=== PATIENT | female | born 1985 | race Caucasian/White ===

== ENCOUNTER 2016-08-20 16:40 | Emergency (ER) | payer OTHER ==
[~2016-08-20] VITALS: Ht 165.1 cm; Wt 133.8 kg
--- NOTE | 2016-08-20 17:11 | PHYS DOC ---
Past Medical History Past Medical History: Arthritis, CHF, Liver Disease Past Surgical History: Additional Past Surgical Histo: cervical, Alcohol Use: None Drug Use: None Adult General Chief Complaint Chief Complaint: ABDOMINAL PAIN HPI HPI Patient is a 30 year old female who presents with abdominal pain. Patient reports for the past year she has been experiencing pain in her right upper quadrant and around her umbilicus. Patient describes a sharp pain that is worse with movement. She also reports associated nausea, but no nausea at this time. She says she has undergone workup for this already, and has been referred to a supervisor trust accounts and a airbrush painter at . She has appointments with the specialist in the next 2 weeks. She says she has tried taking meclizine at home for the nausea with insufficient relief, and she has not taken anything for pain as she does not have anything. No other acute complaints. Review of Systems Review of Systems Constitutional: Denies fever or chills Eyes: Denies change in visual acuity or eye pain HENT: Denies nasal congestion or sore throat Respiratory: Denies cough or shortness of breath Cardiovascular: Denies chest pain GI: RUQ/periumbilical abdominal pain, nausea. Denies vomiting, bloody stools or diarrhea : Denies dysuria or hematuria Musculoskeletal: Denies back pain or joint pain Integument: Denies rash or skin lesions Neurologic: Denies headache, focal weakness or sensory changes Current Medications Current Medications Current Medications Medications (Trade) Dose Ordered Sig/Kathy Start Time Stop Time Status Last Admin Dose Admin Info (Do NOT chart on this entry -- for MONITORING) 1 each PRN DAILY PRN 08/20/16 17:45 08/22/16 17:44 Iohexol (Omnipaque 300 Mg/ml) 75 ml 1X ONCE 08/20/16 17:45 08/20/16 17:46 DC Morphine Sulfate 4 mg 4 mg 1X ONCE 08/20/16 17:15 08/20/16 17:16 DC 08/20/16 17:46 4 MG Ondansetron HCl (Zofran) 4 mg 1X ONCE 08/20/16 17:15 08/20/16 17:16 DC 08/20/16 17:46 4 MG Sodium Chloride (Iv Sodium Chloride 0.9% 500ml Bag) 500 ml @ 500 mls/hr 1X ONCE 08/20/16 17:15 08/20/16 18:14 DC 08/20/16 17:00 500 MLS/HR Allergies Allergies Allergies Coded Allergies Type Severity Reaction Last Updated Verified NSAIDS (Non-Steroidal Anti-Inflamma Allergy Intermediate 08/20/16 Yes Sulfa (Sulfonamide Antibiotics) Allergy Intermediate 08/20/16 Yes cephalexin Allergy Intermediate 08/20/16 Yes prednisone Allergy Intermediate 08/20/16 Yes sulfamethoxazole Allergy Intermediate 08/20/16 Yes trimethoprim Allergy Intermediate 08/20/16 Yes Physical Exam Physical Exam Constitutional: Well developed, well nourished, no acute distress, non-toxic appearance HENT: Normocephalic, atraumatic, bilateral external ears normal Eyes: EOMI, conjunctiva normal, no discharge Neck: Normal range of motion, no stridor Cardiovascular: Heart rate normal, regular rhythm, no murmur Lungs & Thorax: Bilateral breath sounds clear to auscultation Abdomen: Bowel sounds normal, soft, non-distended, RUQ/periumbilical TTP without guarding or rebound Skin: Warm, dry, no erythema, no rash Extremities: No obvious deformity, no edema Neurologic: Alert and oriented X 3, no gross deficits noted Current Patient Data Vital Signs Vital Signs Date Time Temp Pulse Resp B/P Pulse Ox O2 Delivery O2 Flow Rate FiO2 08/20/16 17:51 92 18 159/74 95 Room Air 08/20/16 16:52 97.7 97.7 Lab Values Laboratory Tests Test 08/20/16 17:05 08/20/16 17:33 Urine Collection Type Unknown Urine Color Yellow Urine Clarity Clear Urine pH 5.5 Urine Specific [place] 1.020 Urine Protein Negativemg/dL (NEG-TRACE) Urine Glucose (UA) Negativemg/dL (NEG) Urine Ketones (Stick) Negativemg/dL (NEG) Urine Blood Negative (NEG) Urine Nitrite Negative (NEG) Urine Bilirubin Negative (NEG) Urine Urobilinogen Dipstick 0.2mg/dL (0.2 mg/dL) Urine Leukocyte Esterase Negative (NEG) Urine RBC 0/HPF (0-2) Urine WBC 1-4/HPF (0-4) Urine Squamous Epithelial Cells Many/LPF Urine Bacteria Many/HPF (0-FEW) Urine Mucus Marked/LPF Urine Trichomonas Present Urine Test Negative (NEG) White Blood Count 17.2x10^3/uL (4.0-11.0) H Red Blood Count 4.78x10^6/uL (3.50-5.40) Hemoglobin 15.0g/dL (12.0-15.5) Hematocrit 43.9% (36.0-47.0) Mean Corpuscular Volume 92fL (79-100) Mean Corpuscular Hemoglobin 31pg (25-35) Mean Corpuscular Hemoglobin Concent 34g/dL (31-37) Red Cell Distribution Width 13.4% (11.5-14.5) Platelet Count 282x10^3/uL (140-400) Neutrophils (%) (Auto) 74% (31-73) H Lymphocytes (%) (Auto) 18% (24-48) L Monocytes (%) (Auto) 6% (0-9) Eosinophils (%) (Auto) 1% (0-3) Basophils (%) (Auto) 1% (0-3) Neutrophils # (Auto) 12.7x10^3uL (1.8-7.7) H Lymphocytes # (Auto) 3.1x10^3/uL (1.0-4.8) Monocytes # (Auto) 1.1x10^3/uL (0.0-1.1) Eosinophils # (Auto) 0.1x10^3/uL (0.0-0.7) Basophils # (Auto) 0.2x10^3/uL (0.0-0.2) Segmented Neutrophils % 74% (35-66) H Band Neutrophils % 3% (0-9) Lymphocytes % 17% (24-48) L Monocytes % 3% (0-10) Eosinophils % 3% (0-5) Platelet Estimate Adequate (ADEQUATE) Sodium Level 144mmol/L (136-145) Potassium Level 4.1mmol/L (3.5-5.1) Chloride Level 108mmol/L (98-107) H Carbon Dioxide Level 26mmol/L (21-32) Anion Gap 10 (6-14) Blood Urea Nitrogen 15mg/dL (7-20) Creatinine 0.7mg/dL (0.6-1.0) Estimated GFR (Cockcroft-Gault) 99.6 BUN/Creatinine Ratio 21 (6-20) H Glucose Level 105mg/dL (70-99) H Calcium Level 8.8mg/dL (8.5-10.1) Total Bilirubin 0.2mg/dL (0.2-1.0) Aspartate Amino Transferase (AST) 41U/L (15-37) H Alanine Aminotransferase (ALT) 60U/L (14-59) H Alkaline Phosphatase 84U/L (46-116) Total Protein 7.1g/dL (6.4-8.2) Albumin 3.3g/dL (3.4-5.0) L Albumin/Globulin Ratio 0.9 (1.0-1.7) L Lipase 177U/L (73-393) Laboratory Tests 08/20/16 17:33 Laboratory Tests 08/20/16 17:33 EKG EKG [] Radiology/Procedures Radiology/Procedures [] Course & Med Decision Making Course & Med Decision Making Pertinent Labs and Imaging studies reviewed. (See chart for details) Patient is 22-year-old female who presents with abdominal pain. Given tenderness on exam, will obtain CT abdomen/pelvis to evaluate. Have also ordered labs, UA, urine screen. IV fluids, nausea meds, pain meds ordered for relief of symptoms. Labs notable for leukocytosis, mildly elevated AST and ALT. Prior to CT scan (just after she received meds) and before I could review lab results with patient, the patient states that she has to leave immediately. Discussed danger of leaving without completed workup. Patient acknowledges risk and remains insistent upon leaving. Discharged AMA with return precautions. Dragon Disclaimer Dragon Disclaimer This electronic medical record was generated, in whole or in part, using a voice recognition dictation system. Departure Departure Referrals: UNKNOWN PCP NAME (PCP) CHELA OCONNELL MD Aug 20, 2016 17:11
[2016-08-20] MEDS ORDERED: MORPHINE SULFATE 4 MG/ML DISP.SYRIN. IV ONE (17:15)
[2016-08-20] MEDS ORDERED: IV NORMAL SALINE 500ML BAG 500 ML IV ONE (17:15)
[2016-08-20] MEDS ORDERED: ONDANSETRON PF 4 MG/2 ML VIAL. IV ONE (17:15)
[2016-08-20 17:24] LABS: NEG OBC UR NEG; POS OBC UR POS
[2016-08-20 17:25] LABS: BILIRUBIN,URINE NEGATIVE (NEG); GLUCOSE,URINE NEGATIVE (NEG); NITRITE,URINE NEGATIVE (NEG); PH,URINE 5.5; PROTEIN,URINE NEGATIVE (NEG-TRACE); UROBILINOGEN,URINE 0.2 mg/dL (0.2 mg/dL)
[2016-08-20 17:37] LABS: BACTERIA,URINE MANY /HPF (0-FEW); RBC,URINE 0 /HPF (0-2); SQUAMOUS EPITHELIAL CELL,UR MANY /LPF; TRICHOMONAS,URINE PRESENT
[2016-08-20] MEDS ORDERED: IOHEXOL 300 MG/ML 75 ML VIAL IV ONE (17:45)
[2016-08-20] MEDS ORDERED: CONTRAST GIVEN MC PRN (17:45)
[2016-08-20 17:48] LABS: BASO # 0.2 x10^3/uL (0.0-0.2); BASO % 1 % (0-3); EOS % 1 % (0-3); HEMATOCRIT 43.9 % (36.0-47.0); LYMPH # 3.1 x10^3/uL (1.0-4.8); LYMPH % 18 % (24-48); MEAN CORPUSCULAR HEMOGLOBIN 31 pg (25-35); MEAN CORPUSCULAR HGB CONC 34 g/dL (31-37); MEAN CORPUSCULAR VOLUME 92 fL (79-100); MONO % 6 % (0-9); NEUT % 74 % (31-73); PLATELET COUNT 282 x10^3/uL (140-400); RED BLOOD COUNT 4.78 x10^6/uL (3.50-5.40); RED CELL DISTRIBUTION WIDTH 13.4 % (11.5-14.5); WHITE BLOOD COUNT 17.2 x10^3/uL (4.0-11.0)
[2016-08-20 17:51] VITALS: BP 159/74
[2016-08-20 18:17] LABS: CALCIUM 8.8 mg/dL (8.5-10.1); CREATININE 0.7 mg/dL (0.6-1.0); GFR 99.6; POTASSIUM 4.1 mmol/L (3.5-5.1)
[2016-08-20 18:21] LABS: ALBUMIN 3.3 g/dL (3.4-5.0); ALBUMIN/GLOBULIN RATIO 0.9 (1.0-1.7); TOTAL BILIRUBIN 0.2 mg/dL (0.2-1.0); TOTAL PROTEIN 7.1 g/dL (6.4-8.2)
[2016-08-20 18:23] LABS: % EOS 3 % (0-5)
[2016-08-20 18:24] LABS: PLT ESTIMATE ADEQUATE (ADEQUATE)
--- NOTE | 2016-08-22 14:04 | VNOTE ---
CALL BACK NOTE CALL BACK Microbiology 08/20/16 Urine Culture - Final, Complete 08/20/16 Urine Culture Result 1 (JORGE) - Final, Complete 08/20/16 Antimicrobic Susceptibility - Final, Complete Attempted to contact she the number provided a [phone] with the person on the other line stating that she is not available at this time. Patient's urine was positive for Escherichia coli. Patient was also positive for Trichomonas in the urine. Patient had left AGAINST MEDICAL ADVICE. JAMES GARCIA NP Aug 22, 2016 14:04
--- NOTE | 2016-08-22 15:27 | VNOTE ---
CALL BACK NOTE CALL BACK Microbiology 08/20/16 Urine Culture - Final, Complete 08/20/16 Urine Culture Result 1 (JORGE) - Final, Complete 08/20/16 Antimicrobic Susceptibility - Final, Complete Patient has called back in regards to the phone message. Patient was provided Flagyl for Trichomonas with instructions to have her partner treated as well as avoiding sexual intercourse for the next 2 weeks. Patient was also provided with Macrobid for her urinary tract infection. Prescriptions were called into the [facility] at and [facility]. JAMES GARCIA NP Aug 22, 2016 15:27
== END 2016-08-20 18:19 | disposition left against medical advice (07) ==
LOC: ER 16:40
DX: R10.11 Right upper quadrant pain (principal); R11.2 Nausea with vomiting, unspecified; I50.9 Heart failure, unspecified; M19.90 Unspecified osteoarthritis, unspecified site; Z88.2 Allergy status to sulfonamides; Z88.8 Allergy status to other drugs, medicaments and biological substances; Z88.1 Allergy status to other antibiotic agents
CPT/HCPCS: 36415; 80053; 81001; 81025; 83690; 85007; 85027; 87086; 87186; 96361; 96374; 96375; 99284; J2270; J2405; J7040

== ENCOUNTER 2016-09-05 14:55 | Emergency (ER) | payer OTHER ==
[2016-09-05 16:30] VITALS: BP 177/100
[2016-09-05] MEDS ORDERED: HYDR-971 PO (16:49)
[2016-09-05] MEDS ORDERED: CLIN-44 PO (16:49)
--- NOTE | 2016-09-05 16:49 | PHYS DOC ---
Past Medical History Past Medical History: Arthritis, CHF, Liver Disease Past Surgical History: Additional Past Surgical Histo: cervical, Alcohol Use: None Drug Use: None Adult General Chief Complaint Chief Complaint: ABSCESS HPI HPI Patient is a 31 year old female who presents with an abscess on the right inner thigh that she noted 2 weeks ago. Patient states she tried draining it with no success. She states she has history of similar abscesses. Patient denies any fever. Review of Systems Review of Systems Constitutional: Denies fever or chills [] Musculoskeletal: Denies back pain or joint pain [] Integument: Abscess to the right inner thigh Neurologic: Denies headache, focal weakness or sensory changes [] Endocrine: Denies polyuria or polydipsia [] Allergies Allergies Allergies Coded Allergies Type Severity Reaction Last Updated Verified NSAIDS (Non-Steroidal Anti-Inflamma Allergy Intermediate 08/20/16 Yes Sulfa (Sulfonamide Antibiotics) Allergy Intermediate 08/20/16 Yes cephalexin Allergy Intermediate 08/20/16 Yes prednisone Allergy Intermediate 08/20/16 Yes sulfamethoxazole Allergy Intermediate 08/20/16 Yes trimethoprim Allergy Intermediate 08/20/16 Yes Physical Exam Physical Exam Constitutional: Well developed, well nourished, no acute distress, non-toxic appearance. [] Skin: Right inner thigh with an area of induration approximately 1 x 1 cm with surrounding approximately 2 cm cellulitis. The area is warm and tender to palpate but not fluctuant. Back: No tenderness, no CVA tenderness. [] Extremities: No tenderness, no cyanosis, no clubbing, ROM intact, no edema. [] Neurologic: Alert and oriented X 3, normal motor function, normal sensory function, no focal deficits noted. [] Psychologic: Affect normal, judgement normal, mood normal. [] EKG EKG [] Radiology/Procedures Radiology/Procedures [] Course & Med Decision Making Course & Med Decision Making Pertinent Labs and Imaging studies reviewed. (See chart for details) Patient has an abscess with cellulitis of the right inner thigh that is not ready to be drained. Her tetanus is up-to-date. Discharged with clindamycin for 10 days. Warm compresses recommended to the area. Follow-up with her own PCP or the provided general surgeon in 1-2 weeks. Instructed to return to the ED if symptoms worsen. Dragon Disclaimer Dragon Disclaimer This electronic medical record was generated, in whole or in part, using a voice recognition dictation system. Departure Departure Impression: Primary Impression: Cellulitis and abscess of lower extremity Disposition: HOME, SELF-CARE Condition: STABLE Referrals: MARCIN REAVES (PCP) Follow-up with your own doctor in one week Patient Instructions: Abscess Additional Instructions: You were seen for an abscess of the right the abscess is not ready to be drained. Apply warm compresses to the area twice a day. Keep it clean and dry. Take the prescribed antibiotics until they're finished. Come back to the emergency room if symptoms worsen especially if you develop a fever on the area of redness grows bigger. Scripts Hydrocodone/Apap 5-325 ([place] 5-325 Tablet)1 Each Tablet1-2 Tab PO Q4-6HRS #14 TAB Prov:RAMY HOANG APRN 09/05/16 Clindamycin Hcl 150 Mg Capsule3 Cap PO TID #90 CAP Prov:RAMY HOANG APRN 09/05/16 RAMY HOANG APRN Sep 05, 2016 16:49
== END 2016-09-05 17:11 | disposition home or self-care (01) ==
LOC: ER 14:55
DX: L03.115 Cellulitis of right lower limb (principal); M19.90 Unspecified osteoarthritis, unspecified site; I50.9 Heart failure, unspecified; Z88.6 Allergy status to analgesic agent; Z88.1 Allergy status to other antibiotic agents; Z88.2 Allergy status to sulfonamides; Z88.8 Allergy status to other drugs, medicaments and biological substances
CPT/HCPCS: 99283

== ENCOUNTER 2016-09-07 21:26 | Emergency (ER) | payer OTHER ==
[~2016-09-07 21:26] MED LIST: CLIN-44 PO; HYDR-971 PO
[2016-09-07 21:34] VITALS: BP 144/77
[2016-09-07] MEDS ORDERED: HYDR-971 PO (22:14)
--- NOTE | 2016-09-07 22:16 | PHYS DOC ---
Past Medical History Past Medical History: Arthritis, CHF, Liver Disease Past Surgical History: Additional Past Surgical Histo: cervical, Alcohol Use: None Drug Use: None Adult General Chief Complaint Chief Complaint: ABSCESS HPI HPI Patient is a 31 year old female who presents with reexamination of an abscess on her thigh that she was seen for on 09/05/15. States she has been taking antibiotic as instructed but she is out of pain medicaiton. Denies fevers, chills Review of Systems Review of Systems Constitutional: Denies fever or chills Eyes: Denies change in visual acuity, redness, or eye pain HENT: Denies nasal congestion or sore throat Respiratory: Denies cough or shortness of breath Cardiovascular: No additional information not addressed in HPI] GI: Denies abdominal pain, nausea, vomiting, bloody stools or diarrhea : Denies dysuria or hematuria Musculoskeletal: Denies back pain or joint pain Integument: abscess right lower leg Neurologic: Denies headache, focal weakness or sensory changes [] Endocrine: Denies polyuria or polydipsia [] Allergies Allergies Allergies Coded Allergies Type Severity Reaction Last Updated Verified NSAIDS (Non-Steroidal Anti-Inflamma Allergy Intermediate 08/20/16 Yes Sulfa (Sulfonamide Antibiotics) Allergy Intermediate 08/20/16 Yes cephalexin Allergy Intermediate 08/20/16 Yes prednisone Allergy Intermediate 08/20/16 Yes sulfamethoxazole Allergy Intermediate 08/20/16 Yes trimethoprim Allergy Intermediate 08/20/16 Yes Physical Exam Physical Exam Constitutional: Well developed, well nourished, no acute distress, non-toxic appearance. HENT: Normocephalic, atraumatic, bilateral external ears normal, oropharynx moist, no oral exudates, nose normal. Eyes: PERRLA, EOMI, conjunctiva normal, no discharge. Neck: Normal range of motion, no tenderness, supple, no stridor. Cardiovascular:Heart rate regular rhythm, no murmur Lungs & Thorax: Bilateral breath sounds clear to auscultation Abdomen: Bowel sounds normal, soft, no tenderness, no masses, no pulsatile masses. Skin: 2cm diameter area of swelling and erythema to right medial thigh with mild cellultitis. No induration . Back: No tenderness, no CVA tenderness. Extremities: No tenderness, no cyanosis, no clubbing, ROM intact, no edema. Neurologic: Alert and oriented X 3, normal motor function, normal sensory function, no focal deficits noted. Psychologic: Affect normal, judgement normal, mood normal. [] Current Patient Data Vital Signs Vital Signs Date Time Temp Pulse Resp B/P Pulse Ox O2 Delivery O2 Flow Rate FiO2 09/07/16 21:34 98.6 99 22 99 Room Air 98.6 EKG EKG [] Radiology/Procedures Radiology/Procedures [] Impressions: 1. abscess right lower leg Course & Med Decision Making Course & Med Decision Making Pertinent Labs and Imaging studies reviewed. (See chart for details) [] Dragon Disclaimer Dragon Disclaimer This electronic medical record was generated, in whole or in part, using a voice recognition dictation system. Departure Departure Impression: Primary Impression: Cellulitis and abscess of lower extremity Disposition: 01 HOME, SELF-CARE Condition: STABLE Referrals: MARCIN REAVES [employer] (PCP) FLORIN MILLER MD Patient Instructions: Abscess, [id number] Additional Instructions: Continue the antibiotic as discussed. Keep area clean and dry. Apply warm compress three times daily. Follow up as discussed. Scripts Hydrocodone/Apap 5-325 ([place] 5-325 Tablet)1 Each Tablet1 Tab PO PRN Q6HRS PRN PAIN #10 TAB Prov:MARY LEVINE APRN 09/07/16 MARY LEVINE APRN Sep 07, 2016 22:16
== END 2016-09-07 22:34 | disposition home or self-care (01) ==
LOC: ER 21:26
DX: L03.115 Cellulitis of right lower limb (principal); M19.90 Unspecified osteoarthritis, unspecified site; I50.9 Heart failure, unspecified; Z88.6 Allergy status to analgesic agent; Z88.1 Allergy status to other antibiotic agents; Z88.2 Allergy status to sulfonamides; Z88.8 Allergy status to other drugs, medicaments and biological substances
CPT/HCPCS: 99283

== ENCOUNTER 2016-11-01 18:34 | Emergency (ER) | payer OTHER ==
[~2016-11-01] VITALS: Ht 165.1 cm; Wt 158.8 kg
[2016-11-01 18:41] VITALS: BP 162/89
--- NOTE | 2016-11-01 19:06 | PHYS DOC ---
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 States she had sexual intercourse last night. She denies prior vaginal bleeding or discharge. Denies abdominal pain, dysuria, fever or chills, back pain, vaginal pain. 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 Review of Systems Review of Systems Constitutional: Denies fever or chills [] Eyes: Denies change in visual acuity, redness, or eye pain [] HENT: Denies nasal congestion or sore throat [] Respiratory: Denies cough or shortness of breath [] Cardiovascular: No additional information not addressed in HPI [] GI: Denies abdominal pain, nausea, vomiting, bloody stools or diarrhea [] : Denies dysuria or hematuria [] Musculoskeletal: Denies back pain or joint pain [] Integument: Denies rash or skin lesions [] Neurologic: Denies headache, focal weakness or sensory changes [] Endocrine: Denies polyuria or polydipsia [] Allergies Allergies Allergies Coded Allergies Type Severity Reaction Last Updated Verified NSAIDS (Non-Steroidal Anti-Inflamma Allergy Intermediate 08/20/16 Yes Sulfa (Sulfonamide Antibiotics) Allergy Intermediate 08/20/16 Yes cephalexin Allergy Intermediate 08/20/16 Yes prednisone Allergy Intermediate 08/20/16 Yes sulfamethoxazole Allergy Intermediate 08/20/16 Yes trimethoprim Allergy Intermediate 08/20/16 Yes Physical Exam Physical Exam Constitutional: Well developed, well nourished, no acute distress, non-toxic appearance. [] HENT: Normocephalic, atraumatic, bilateral external ears normal, oropharynx moist, nose normal. [] Eyes: PERRLA, EOMI. [] Neck: Normal range of motion, supple. [] Cardiovascular:Heart rate regular rhythm [] Lungs & Thorax: Bilateral breath sounds clear to auscultation [] Abdomen: Bowel sounds normal, soft, no tenderness. [] Skin: Warm, dry, no erythema, no rash. [] Back: Normal range of motion. [] Extremities: ROM intact, no edema. [] Neurologic: Alert and oriented X 3, normal motor function, normal sensory function, no focal deficits noted. [] Psychologic: Affect normal, judgement normal, mood normal. [] Current Patient Data Vital Signs Vital Signs Date Time Temp Pulse Resp B/P Pulse Ox O2 Delivery O2 Flow Rate FiO2 11/01/16 18:41 97.9 103 18 162/89 98 Room Air 97.9 Lab Values Laboratory Tests Test 11/01/16 18:02 POC Urine HCG, Qualitative Hcg positive (Negative) Course & Med Decision Making Course & Med Decision Making Pertinent Labs and Imaging studies reviewed. (See chart for details) Bedside ultrasound as performed by me showing single intrauterine with heart rate of 169. Return precautions given. She understands and agrees with plan. Dragon Disclaimer Dragon Disclaimer This electronic medical record was generated, in whole or in part, using a voice recognition dictation system. Departure Departure Impression: Primary Impression: Vaginal bleeding during , antepartum Disposition: 01 HOME, SELF-CARE Condition: STABLE Referrals: ANNELISE GOYAL MD Patient Instructions: Vaginal Bleeding During , [id number] Additional Instructions: Follow-up with OB clinic. Return for any concerns. Steffen LARSON MD Nov 01, 2016 19:06
== END 2016-11-01 19:13 | disposition home or self-care (01) ==
LOC: ER 18:34
DX: O46.91 Antepartum hemorrhage, unspecified, first trimester (principal); M19.90 Unspecified osteoarthritis, unspecified site; I50.9 Heart failure, unspecified; Z3A.09 9 weeks gestation of pregnancy; Z88.1 Allergy status to other antibiotic agents; Z88.2 Allergy status to sulfonamides; Z88.6 Allergy status to analgesic agent; Z88.8 Allergy status to other drugs, medicaments and biological substances
CPT/HCPCS: 81025; 99284-25

== ENCOUNTER 2016-11-08 09:24 | Emergency (ER) | payer OTHER ==
[~2016-11-08] VITALS: Ht 165.1 cm; Wt 156.5 kg
--- NOTE | 2016-11-08 10:12 | PHYS DOC ---
Past Medical History Past Medical History: Arthritis, CHF, Hypertension, Liver Disease, UTI, Other Additional Past Medical Histor: preeclampsia; 9 miscarriages; septal defect in uterus Past Surgical History: Additional Past Surgical Histo: cervical, Alcohol Use: None Drug Use: None Adult General Chief Complaint Chief Complaint: VAGINAL BLEEDING HPI HPI Patient is a 31 year old female who presents with complaint of vaginal bleeding and left flank pain. The patient states that she has been having flank pain over the past 2 days. Patient noticed this morning that she had vaginal bleeding after urinating. Patient describes the bleeding as spotting. Patient states that she had a similar episode of spotting on November 01 and was seen in the emergency department at that time. A bedside ultrasound showed a normal intrauterine . Patient is G 10 approximately 11 weeks . 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 Patient rates her pain as 7 out of 10. Patient states that the pain is sharp and towards her left flank. Patient denies any pelvic pain or abdominal pain currently. He states she is concerned that she may have urinary tract infection. Patient contacted her OB Dr. Gibbs's office, and she was told to come to the emergency department for evaluation. Review of Systems Review of Systems Constitutional: Denies fever or chills [] Eyes: Denies change in visual acuity, redness, or eye pain [] HENT: Denies nasal congestion or sore throat [] Respiratory: Denies cough or shortness of breath [] Cardiovascular: Denies chest pain or edema [] GI: Denies abdominal pain, nausea, vomiting, bloody stools or diarrhea [] : Vaginal bleeding [] Musculoskeletal: Left flank pain, denies back pain or joint pain [] Integument: Denies rash or skin lesions [] Neurologic: Denies headache, focal weakness or sensory changes [] Current Medications Current Medications Current Medications Medications (Trade) Dose Ordered Sig/Kathy Start Time Stop Time Status Last Admin Dose Admin Acetaminophen (Tylenol) 650 mg 1X ONCE 11/08/16 10:30 11/08/16 10:31 DC 11/08/16 10:34 650 MG Sodium Chloride (Iv Sodium Chloride 0.9% 500ml Bag) 500 ml @ 500 mls/hr 1X ONCE 11/08/16 10:30 11/08/16 11:29 DC 11/08/16 10:13 500 MLS/HR Allergies Allergies Allergies Coded Allergies Type Severity Reaction Last Updated Verified NSAIDS (Non-Steroidal Anti-Inflamma Allergy Intermediate 08/20/16 Yes Sulfa (Sulfonamide Antibiotics) Allergy Intermediate 08/20/16 Yes cephalexin Allergy Intermediate 08/20/16 Yes prednisone Allergy Intermediate 08/20/16 Yes sulfamethoxazole Allergy Intermediate 08/20/16 Yes trimethoprim Allergy Intermediate 08/20/16 Yes nitrofurantoin Allergy Unknown 11/08/16 Yes Physical Exam Physical Exam Constitutional: Well developed, well nourished, no acute distress, non-toxic appearance. [] HENT: Normocephalic, atraumatic, bilateral external ears normal, oropharynx moist, no oral exudates, nose normal. [] Eyes: PERRLA, EOMI, conjunctiva normal, no discharge. [] Neck: Normal range of motion, no tenderness, supple, no stridor. [] Cardiovascular:Heart rate regular rhythm, no murmur [] Lungs & Thorax: Bilateral breath sounds clear to auscultation [] Abdomen: Bowel sounds normal, soft, no tenderness, no masses, no pulsatile masses. . Pelvic: Normal external exam, subacute blood present in vaginal canal, no active bleeding, cervical os closed, no cervical motion tenderness, no midline or bilateral adnexal tenderness on bimanual exam [] Skin: Warm, dry, no erythema, no rash. [] Back: No tenderness, no CVA tenderness. [] Extremities: No tenderness, no cyanosis, no clubbing, ROM intact, no edema. [] Neurologic: Alert and oriented X 3, normal motor function, normal sensory function, no focal deficits noted. [] Current Patient Data Vital Signs Vital Signs Date Time Temp Pulse Resp B/P Pulse Ox O2 Delivery O2 Flow Rate FiO2 11/08/16 11:26 89 16 135/77 99 Room Air 11/08/16 09:25 98.7 98.7 Lab Values Laboratory Tests Test 11/08/16 08:36 11/08/16 09:25 11/08/16 10:05 POC Urine HCG, Qualitative Hcg positive (Negative) Urine Collection Type Unknown Urine Color Yellow Urine Clarity Clear Urine pH 6.0 Urine Specific [place] >=1.030 Urine Protein Negativemg/dL (NEG-TRACE) Urine Glucose (UA) Negativemg/dL (NEG) Urine Ketones (Stick) Negativemg/dL (NEG) Urine Blood Large (NEG) Urine Nitrite Negative (NEG) Urine Bilirubin Negative (NEG) Urine Urobilinogen Dipstick 0.2mg/dL (0.2 mg/dL) Urine Leukocyte Esterase Negative (NEG) Urine RBC 11-20/HPF (0-2) Urine WBC 1-4/HPF (0-4) Urine Squamous Epithelial Cells Many/LPF Urine Bacteria Many/HPF (0-FEW) Urine Mucus Marked/LPF White Blood Count 11.3x10^3/uL (4.0-11.0) H Red Blood Count 4.46x10^6/uL (3.50-5.40) Hemoglobin 14.0g/dL (12.0-15.5) Hematocrit 40.8% (36.0-47.0) Mean Corpuscular Volume 92fL (79-100) Mean Corpuscular Hemoglobin 32pg (25-35) Mean Corpuscular Hemoglobin Concent 34g/dL (31-37) Red Cell Distribution Width 13.1% (11.5-14.5) Platelet Count 242x10^3/uL (140-400) Neutrophils (%) (Auto) 67% (31-73) Lymphocytes (%) (Auto) 26% (24-48) Monocytes (%) (Auto) 5% (0-9) Eosinophils (%) (Auto) 2% (0-3) Basophils (%) (Auto) 1% (0-3) Neutrophils # (Auto) 7.5x10^3uL (1.8-7.7) Lymphocytes # (Auto) 2.9x10^3/uL (1.0-4.8) Monocytes # (Auto) 0.6x10^3/uL (0.0-1.1) Eosinophils # (Auto) 0.2x10^3/uL (0.0-0.7) Basophils # (Auto) 0.1x10^3/uL (0.0-0.2) Maternal Serum HCG Beta Subunit 97157bZE/mL (0-6) H Sodium Level 141mmol/L (136-145) Potassium Level 3.6mmol/L (3.5-5.1) Chloride Level 106mmol/L (98-107) Carbon Dioxide Level 25mmol/L (21-32) Anion Gap 10 (6-14) Blood Urea Nitrogen 6mg/dL (7-20) L Creatinine 0.6mg/dL (0.6-1.0) Estimated GFR (Cockcroft-Gault) 118.2 BUN/Creatinine Ratio 10 (6-20) Glucose Level 95mg/dL (70-99) Calcium Level 8.7mg/dL (8.5-10.1) Magnesium Level 1.6mg/dL (1.8-2.4) L Total Bilirubin 0.3mg/dL (0.2-1.0) Aspartate Amino Transferase (AST) 12U/L (15-37) L Alanine Aminotransferase (ALT) 21U/L (14-59) Alkaline Phosphatase 72U/L (46-116) Total Protein 6.6g/dL (6.4-8.2) Albumin 2.7g/dL (3.4-5.0) L Albumin/Globulin Ratio 0.7 (1.0-1.7) L Laboratory Tests 11/08/16 10:05 Laboratory Tests 11/08/16 10:05 Microbiology 11/08/16 Wet Prep - Final, Complete EKG EKG Not performed [] Radiology/Procedures Radiology/Procedures Limited bedside transabdominal ultrasound performed and interpreted by myself: Intrauterine present in right horn of bicornuate uterus, heart rate 178 bpm, no adnexal masses or free fluid present Course & Med Decision Making Course & Med Decision Making Pertinent Labs and Imaging studies reviewed. (See chart for details) Patient was given IV fluids and Tylenol in the emergency department. Patient found to have significant bacteriuria and will be started on oral clindamycin for treatment as patient has listed several allergies to multiple antibiotics. I spoke with Dr. Gibbs who asked that the patient come to his office tomorrow for reevaluation. Advised return to emergency department for any worsening symptoms. Patient voiced understanding and in agreement with treatment plan. Dragon Disclaimer Dragon Disclaimer This electronic medical record was generated, in whole or in part, using a voice recognition dictation system. Departure Departure Impression: Primary Impression: Threatened miscarriage Additional Impression: Urinary tract infection Disposition: HOME, SELF-CARE Condition: IMPROVED Referrals: MARCIN REAVES-[facility] (PCP) Patient Instructions: Threatened Miscarriage, Urinary Tract Infection Additional Instructions: Follow-up with Dr. Gibbs in one week. Return to the emergency department for any worsening symptoms. Scripts Clindamycin Hcl 300 Mg Capsule1 Cap PO BID #14 CAP Prov:JEREMIE RAMOS MD 11/08/16 Problem Qualifiers Additional Impression: Urinary tract infection Urinary tract infection type: site unspecified Hematuria presence: with hematuria Qualified Code: N39.0 - Urinary tract infection, site not specified JEREMIE RAMOS MD Nov 08, 2016 10:12
[2016-11-08 10:16] LABS: BASO # 0.1 x10^3/uL (0.0-0.2); BASO % 1 % (0-3); EOS % 2 % (0-3); HEMATOCRIT 40.8 % (36.0-47.0); LYMPH # 2.9 x10^3/uL (1.0-4.8); LYMPH % 26 % (24-48); MEAN CORPUSCULAR HEMOGLOBIN 32 pg (25-35); MEAN CORPUSCULAR HGB CONC 34 g/dL (31-37); MEAN CORPUSCULAR VOLUME 92 fL (79-100); MONO % 5 % (0-9); NEUT % 67 % (31-73); PLATELET COUNT 242 x10^3/uL (140-400); RED BLOOD COUNT 4.46 x10^6/uL (3.50-5.40); RED CELL DISTRIBUTION WIDTH 13.1 % (11.5-14.5); WHITE BLOOD COUNT 11.3 x10^3/uL (4.0-11.0)
[2016-11-08 10:17] LABS: BILIRUBIN,URINE NEGATIVE (NEG); GLUCOSE,URINE NEGATIVE (NEG); NITRITE,URINE NEGATIVE (NEG); PROTEIN,URINE NEGATIVE (NEG-TRACE); UROBILINOGEN,URINE 0.2 mg/dL (0.2 mg/dL)
[2016-11-08 10:26] LABS: BACTERIA,URINE MANY /HPF (0-FEW); SQUAMOUS EPITHELIAL CELL,UR MANY /LPF
[2016-11-08 10:27] LABS: CALCIUM 8.7 mg/dL (8.5-10.1); CREATININE 0.6 mg/dL (0.6-1.0); GFR 118.2; POTASSIUM 3.6 mmol/L (3.5-5.1)
[2016-11-08] MEDS ORDERED: IV NORMAL SALINE 500ML BAG 500 ML IV ONE (10:30)
[2016-11-08] MEDS ORDERED: ACETAMINOPHEN 325 MG TABLET. PO ONE (10:30)
[2016-11-08 10:33] LABS: ALBUMIN 2.7 g/dL (3.4-5.0); ALBUMIN/GLOBULIN RATIO 0.7 (1.0-1.7); MAGNESIUM 1.6 mg/dL (1.8-2.4); TOTAL BILIRUBIN 0.3 mg/dL (0.2-1.0); TOTAL PROTEIN 6.6 g/dL (6.4-8.2)
[2016-11-08 11:26] VITALS: BP 135/77
[2016-11-08] MEDS ORDERED: NITR100C62 PO (11:39)
[2016-11-08] MEDS ORDERED: CLIN300C86 PO (11:54)
[2016-11-09] MEDS ORDERED: HYDR-971 PO (00:36)
== END 2016-11-08 12:05 | disposition home or self-care (01) ==
LOC: ER 09:24
DX: O20.0 Threatened abortion (principal); Z3A.11 11 weeks gestation of pregnancy; O23.41 Unspecified infection of urinary tract in pregnancy, first trimester; O16.1 Unspecified maternal hypertension, first trimester; Z88.2 Allergy status to sulfonamides; Z88.1 Allergy status to other antibiotic agents; Z88.8 Allergy status to other drugs, medicaments and biological substances; Z88.6 Allergy status to analgesic agent
CPT/HCPCS: 36415; 80053; 81001; 81025; 83735; 84702; 85027; 86850; 86900; 86901; 87086; 87491; 87591; 96360; 99285; J7040; Q0111

== ENCOUNTER 2016-11-08 22:57 | Emergency (ER) | payer OTHER ==
[~2016-11-08] VITALS: Ht 165.1 cm; Wt 156.5 kg
[~2016-11-08 22:57] MED LIST changes: +CLIN300C86 PO; +NITR100C62 PO
[2016-11-08 22:59] VITALS: BP 176/106
[2016-11-08] MEDS ORDERED: HYDROCODONE/APAP 5/325MG TABLET. PO ONE (23:45)
--- NOTE | 2016-11-09 00:03 | ACF ---
Admission Forms Criteria OBSTETRIC AND GYNECOLOGIC DISEASE [facility] Clinical Indications for Admission to Inpatient Care (Place 'X' for any and all applicable criteria): Hospital admission is needed for appropriate care of the patient because of 1 or more of the following (1)(2)(3): [ ]I. Hemodynamic instability, as indicated by 1 or more of the following (1)( 2)(3)(4)(5): [ ]a) Vital signs or other findings not as expected for chronic patient condition or baseline [ ]b) Instability indicated by 1 or more of the following: [ ]i) Hypotension [ ]ii) Symptomatic tachycardia unresponsive to treatment (eg, analgesia, fluids, sedation as indicated) [ ]iii) Inadequate perfusion indicated by 1 or more of the following: [ ]A. Lactic acidosis (greater than 2 mmol/ L) [ ]B. New abnormal capillary refill ( greater than 3 seconds) [ ]C. Reduced urine output [ ]D. New altered mental status [ ]iv) Orthostatic vital sign changes unresponsive to treatment (eg, fluids) [ ]v) Multiple IV fluid boluses required to maintain adequate blood pressure or perfusion [ ]vi) IV inotropic or vasopressor medication required to maintain adequate blood pressure or perfusion [ ]II. Obstetric infection requiring hospitalization indicated by 1 or more of the following(13)(14): [ ]a) Chorioamnionitis [ ]b) Endometritis (except mild endometritis) [ ]c) Pelvic abscess [ ]d) Peritonitis [ ]e) Septic pelvic thrombophlebitis [ ]III. Amniotic fluid or pulmonary embolism(4)(5)(6) [ ]IV. Suspected peritonitis or ectopic requiring monitoring beyond scope of 24 hours or observation care(7)(8) [ ]V. compromise requiring hospitalization indicated by ALL of the following(9)(10): [ ]a) compromise indicated by 1 or more of the following(11): [ ]i) Abnormal heart rate monitoring [ ]ii) Abnormal contraction stress test [ ]iii) Abnormal biophysical profile [ ]iv) Abnormal Doppler flow in vessels (ie, Doppler velocimetry) (12) [ ]b) Persistence of compromise indicators during evaluation and observation monitoring [ ]. Ovarian hyperstimulation syndrome requiring hospitalization[A] indicated by ALL of the following(15): [ ]a) Recent ovarian stimulation with gonadotropins, or evidence on ultrasound of spontaneous emergence of large number of ovarian follicles [ ]b) Evidence of severe ovarian hyperstimulation syndrome indicated by 1 or more of the following: [ ]i) Abdominal pain unresponsive to oral therapy [ ]ii) Acute respiratory distress syndrome [ ]iii) Electrolyte imbalance ( eg, hyponatremia, hyperkalemia) [ ]iv) Elevated liver enzymes [ ]v) Evidence of thromboembolism [ ]vi) Hemoconcentration (hematocrit greater than 45 % (0.45)) [ ]vii) Inability to maintain oral intake adequate to prevent hemoconcentration [ ]viii) Marked hypotension from baseline (eg, SBP 20 mmHg below patients usual pressure) [ ]ix) Oliguria or anuria [ ]x) Ovarian torsion [ ]xi) Pleural or pericardial effusion on x-ray or echocardiogram [ ]xii) Rapid increase in serum creatinine to greater than 1.2 mg/dL (106 micromoles/L) or creatinine clearance less than 50 mL/min/1.73m2 (0.84 mL/ sec/1.73m2) [ ]xiii) Ruptured ovarian cyst with hemorrhage [ ]xiv) Severe abdominal pain or peritoneal signs [ ]xv) Tense ascites that cannot be managed with paracentesis in outpatient setting [ ]VII.Pelvic infection requiring hospitalization indicated by 1 or more of the following (16): [ ]a) Outpatient treatment has failed or is not appropriate (eg, inpatient monitoring required) [ ]b) Pelvic abscess [ ]c) Surgical emergency cannot be excluded (eg, rigid abdomen) [ ]d) Vomiting precluding outpatient and observation care management VIII. loss complications requiring inpatient medical treatment indicated by 1 or more of the following (4)(7)(9): [ ]a) Fever [ ]b) Peritonitis [ ]c) Sepsis [ ]d) Severe abdominal pain [ ]IX. or patient requiring monitoring for severe heart failure, pulmonary disease, or other comorbid condition (eg, peripartum cardiomyopathy) (4)(17) [ ]X. patient with rupture of membranes requiring hospitalization indicated by ANY ONE of the following: [ ]a) Chorioamnionitis, cloudy amniotic fluid, or other evidence of infection [ ]b) compromise or other need for monitoring (11) [ ]c) Gestation longer than 23 weeks and ANY ONE of the following: [ ]i) Abnormal (noncephalic) presentation [ ]ii) Inadequate home environment (eg, home too far from hospital, unable to rapidly return to hospital) [ ]d) Temperature greater than 100.4 degrees F (38 degrees C)( oral) [ ]e) Threatened labor requiring monitoring beyond scope (eg, over 24 hours) of observation Care [ ] XI. complications, including severe lacerations, infections, or retained placenta (19) [ ] XII.Uterine bleeding with high-risk features indicated by ANY ONE of the following (4): [ ]a) Active major hemorrhage (eg, hemorrhage) [ ]b) Coagulopathy with active bleeding [ ]c) Gestational trophoblastic disease (eg, molar ) (20 ) [ ]d) (longer than 23 weeks) and ANY ONE of the following: [ ]i) Pain [ ]ii) Placental abruption, known or suspected [ ]iii) Placenta accrete, known or suspected(21) [ ]iv) Placenta previa, known or suspected [ ]v) Vasa previa [ ]e) Severe anemia [ ]XIII. Obstetric or Gynecologic Disease, condition or symptom for which ANY ONE of the following: [ ]a) Emergency and observation care have failed or are not considered appropriate ( Also use General Criteria: Observation Care Criteria as appropriate) [ ]b) Presence of a General Admission Criteria or Pediatric General Admission Criteria The original MD [facility] content created by [facility] has been revised. The portions of the content which have been revised are identified through the use of italic text or in bold, and [facility] has neither reviewed nor approved the modified material.All other unmodified content is copyright [facility]. Please see references footnoted in the original [facility] [employer] edition 2016 ADALBERTO CUTLER Nov 09, 2016 00:03
[2016-11-09] MEDS ORDERED: HYDR-971 PO (00:36)
--- NOTE | 2016-11-09 00:37 | PHYS DOC ---
Past Medical History Past Medical History: Arthritis, CHF, Hypertension, Liver Disease, UTI, Other Additional Past Medical Histor: preeclampsia; 9 miscarriages; septal defect in uterus Past Surgical History: Additional Past Surgical Histo: cervical, Alcohol Use: None Drug Use: None Adult General Chief Complaint Chief Complaint: VAGINAL BLEEDING HPI HPI 31-year-old female who was seen in the emergency department this morning and diagnosed with a miscarriage and sent home for outpatient follow-up. Patient states she has an appointment with her [facility] doctor at 2:30 PM tomorrow. She states that several hours after her visit to the emergency Department bleeding became a little heavier and pain intensified. She states the pain now is 9 or 10 out of 10. She states she was not given any pain medicine to take at home today. She denies any fever chills or sweats. She's not had any lightheadedness or orthostatic changes. [] Review of Systems Review of Systems Constitutional: Denies fever or chills [] Eyes: Denies change in visual acuity, redness, or eye pain [] HENT: Denies nasal congestion or sore throat [] Respiratory: Denies cough or shortness of breath [] Cardiovascular: No additional information not addressed in HPI [] GI: Denies abdominal pain, nausea, vomiting, bloody stools or diarrhea [] : Per history of present illness [] Musculoskeletal: Denies back pain or joint pain [] Integument: Denies rash or skin lesions [] Neurologic: Denies headache, focal weakness or sensory changes [] Endocrine: Denies polyuria or polydipsia [] Allergies Allergies Allergies Coded Allergies Type Severity Reaction Last Updated Verified NSAIDS (Non-Steroidal Anti-Inflamma Allergy Intermediate 08/20/16 Yes Sulfa (Sulfonamide Antibiotics) Allergy Intermediate 08/20/16 Yes cephalexin Allergy Intermediate 08/20/16 Yes prednisone Allergy Intermediate 08/20/16 Yes sulfamethoxazole Allergy Intermediate 08/20/16 Yes trimethoprim Allergy Intermediate 08/20/16 Yes nitrofurantoin Allergy Unknown 11/08/16 Yes Physical Exam Physical Exam Constitutional: Well developed, well nourished, no acute distress, non-toxic appearance. [] HENT: Normocephalic, atraumatic, bilateral external ears normal, oropharynx moist, no oral exudates, nose normal. [] Eyes: PERRLA, EOMI, conjunctiva normal, no discharge. [] Neck: Normal range of motion, no tenderness, supple, no stridor. [] Cardiovascular:Heart rate regular rhythm, no murmur [] Lungs & Thorax: Bilateral breath sounds clear to auscultation [] Abdomen: Bowel sounds normal, soft, no tenderness, no masses, no pulsatile masses. [] Skin: Warm, dry, no erythema, no rash. [] Back: No tenderness, no CVA tenderness. [] Extremities: No tenderness, no cyanosis, no clubbing, ROM intact, no edema. [] Neurologic: Alert and oriented X 3, normal motor function, normal sensory function, no focal deficits noted. [] Psychologic: Anxious. [] : Vaginal exam was performed by Jani sanford neuronal reported to me that the cervix was 1 cm dilated with mild bleeding there was no brisk bleeding. There is no cervical motion tenderness or adnexal fullness Current Patient Data Vital Signs Vital Signs Date Time Temp Pulse Resp B/P Pulse Ox O2 Delivery O2 Flow Rate FiO2 11/08/16 22:59 98.6 91 20 176/106 98 Room Air 98.6 EKG EKG [] Radiology/Procedures Radiology/Procedures [] Course & Med Decision Making Course & Med Decision Making Pertinent Labs and Imaging studies reviewed. (See chart for details) [ED course: Evaluation reveals a 31-year-old female with an ongoing miscarriage. She remained stable throughout her time in the department. I reassured her that I thought follow-up tomorrow afternoon was appropriate. I will prescribe her with pain medicine to take as needed until her appointment tomorrow.] Dragon Disclaimer Dragon Disclaimer This electronic medical record was generated, in whole or in part, using a voice recognition dictation system. Departure Departure Impression: Primary Impression: Threatened miscarriage Disposition: 01 HOME, SELF-CARE Condition: STABLE Referrals: MARCIN REAVES-C (PCP) Patient Instructions: Miscarriage Additional Instructions: Follow with your [facility] specialist at 2:30 tomorrow afternoon as scheduled. Return to the emergency part with any new or concerning symptoms Scripts Hydrocodone/Apap 5-325 (Victor 5-325 Tablet)1 Each Tablet1 Tab PO PRN Q6HRS PRN PAIN #10 TAB Prov:GASTON BUSTOS DO 11/09/16 GASTON BUSTOS DO Nov 09, 2016 00:37
== END 2016-11-09 00:42 | disposition home or self-care (01) ==
LOC: ER 22:57
DX: O20.0 Threatened abortion (principal); Z3A.09 9 weeks gestation of pregnancy; I11.0 Hypertensive heart disease with heart failure; I50.9 Heart failure, unspecified; M19.90 Unspecified osteoarthritis, unspecified site; Z87.440 Personal history of urinary (tract) infections; Z98.890 Other specified postprocedural states; Z88.2 Allergy status to sulfonamides; Z88.1 Allergy status to other antibiotic agents; Z88.8 Allergy status to other drugs, medicaments and biological substances
CPT/HCPCS: 99283

== ENCOUNTER 2016-11-11 19:44 | Emergency (ER) | payer OTHER ==
[~2016-11-11] VITALS: Ht 165.1 cm; Wt 156.5 kg
[2016-11-11] MEDS ORDERED: HYDROCODONE/APAP 5/325MG TABLET. PO ONE (20:30)
[2016-11-11] MEDS ORDERED: MORP15TA PO (20:35)
--- NOTE | 2016-11-11 20:35 | PHYS DOC ---
Past Medical History Past Medical History: Arthritis, CHF, Hypertension, Liver Disease, UTI, Other Additional Past Medical Histor: preeclampsia; 9 miscarriages; septal defect in uterus Past Surgical History: Additional Past Surgical Histo: cervical, Alcohol Use: None Drug Use: None Adult General Chief Complaint Chief Complaint: VAGINAL BLEEDING HPI HPI 31-year-old female whom is 13 wks preg by LMP presenting to the emergency department with vaginal bleeding and abdominal pain and suprapubic region. She is currently being treated with clindamycin for urinary tract infection. Her abdominal pain is mild to moderate. She reports probably going through miscarriage though she denies the visualization of tissue. Nonradiating. No alleviating factors present. Review of systems is negative for fevers chills chest pain shortness of breath nausea vomiting diarrhea. All other review of systems is negative unless otherwise noted in history of present illness. Review of Systems Review of Systems SEE ABOVE. Current Medications Current Medications Current Medications Medications (Trade) Dose Ordered Sig/Kathy Start Time Stop Time Status Last Admin Dose Admin Acetaminophen/ Hydrocodone Bitart (Lortab 5/325) 2 tab 1X ONCE 11/11/16 20:30 11/11/16 20:32 DC 11/11/16 20:51 2 TAB Allergies Allergies Allergies Coded Allergies Type Severity Reaction Last Updated Verified NSAIDS (Non-Steroidal Anti-Inflamma Allergy Intermediate 08/20/16 Yes Sulfa (Sulfonamide Antibiotics) Allergy Intermediate 08/20/16 Yes cephalexin Allergy Intermediate 08/20/16 Yes prednisone Allergy Intermediate 08/20/16 Yes sulfamethoxazole Allergy Intermediate 08/20/16 Yes trimethoprim Allergy Intermediate 08/20/16 Yes nitrofurantoin Allergy Unknown 11/08/16 Yes Physical Exam Physical Exam Constitutional: Well developed, well nourished, no acute distress, non-toxic appearance. [] HENT: Normocephalic, atraumatic, bilateral external ears normal, oropharynx moist, no oral exudates, nose normal. [] Eyes: PERRLA, EOMI, conjunctiva normal, no discharge. [] Neck: Normal range of motion, no tenderness, supple, no stridor. [] Cardiovascular:Heart rate regular rhythm, no murmur [] Lungs & Thorax: Bilateral breath sounds clear to auscultation [] Abdomen: Bowel sounds normal, soft, no tenderness, no masses, no pulsatile masses. [] Skin: Warm, dry, no erythema, no rash. [] Back: No tenderness, no CVA tenderness. [] Extremities: No tenderness, no cyanosis, no clubbing, ROM intact, no edema. [] Neurologic: Alert and oriented X 3, normal motor function, normal sensory function, no focal deficits noted. [] Psychologic: Affect normal, judgement normal, mood normal. [] Current Patient Data Vital Signs Vital Signs Date Time Temp Pulse Resp B/P Pulse Ox O2 Delivery O2 Flow Rate FiO2 11/11/16 20:51 99 Room Air 11/11/16 20:17 98.5 97 20 161/91 98.5 Lab Values Laboratory Tests Test 11/11/16 20:35 White Blood Count 12.5x10^3/uL (4.0-11.0) H Red Blood Count 4.19x10^6/uL (3.50-5.40) Hemoglobin 13.1g/dL (12.0-15.5) Hematocrit 39.0% (36.0-47.0) Mean Corpuscular Volume 93fL (79-100) Mean Corpuscular Hemoglobin 31pg (25-35) Mean Corpuscular Hemoglobin Concent 34g/dL (31-37) Red Cell Distribution Width 12.8% (11.5-14.5) Platelet Count 224x10^3/uL (140-400) Neutrophils (%) (Auto) 61% (31-73) Lymphocytes (%) (Auto) 32% (24-48) Monocytes (%) (Auto) 6% (0-9) Eosinophils (%) (Auto) 1% (0-3) Basophils (%) (Auto) 1% (0-3) Neutrophils # (Auto) 7.6x10^3uL (1.8-7.7) Lymphocytes # (Auto) 4.0x10^3/uL (1.0-4.8) Monocytes # (Auto) 0.7x10^3/uL (0.0-1.1) Eosinophils # (Auto) 0.1x10^3/uL (0.0-0.7) Basophils # (Auto) 0.1x10^3/uL (0.0-0.2) Maternal Serum HCG Beta Subunit 82405hJE/mL (0-6) H Sodium Level 138mmol/L (136-145) Potassium Level 3.5mmol/L (3.5-5.1) Chloride Level 106mmol/L (98-107) Carbon Dioxide Level 25mmol/L (21-32) Anion Gap 7 (6-14) Blood Urea Nitrogen 10mg/dL (7-20) Creatinine 0.5mg/dL (0.6-1.0) L Estimated GFR (Cockcroft-Gault) 145.9 Glucose Level 108mg/dL (70-99) H Calcium Level 9.0mg/dL (8.5-10.1) Laboratory Tests 11/11/16 20:35 Laboratory Tests 11/11/16 20:35 EKG EKG [] Radiology/Procedures Radiology/Procedures [] Course & Med Decision Making Course & Med Decision Making Pertinent Labs and Imaging studies reviewed. (See chart for details) [] 31-year-old female presenting to the emergency department with abdominal pain and vaginal bleeding in . Afebrile in the emergency department with a normal heart rate. Blood pressure elevated likely from chronic hypertension. Physical exam shows a nontender abdomen. Ultrasound obtained which showed viable intrauterine preg. Patient is Rh+. Currently being treated for urinary tract infection. UA 3 days ago showed no protein in the urine. Patient was subsequent discharged home to follow up with obstetrics over the next 2 or 3 days. [id number] discharge instructions given along with return precautions. Patient comfortable with plan. I recommended the patient have her hypertension treated by her primary care physician or satellite project site monitor. Dragon Disclaimer Dragon Disclaimer This electronic medical record was generated, in whole or in part, using a voice recognition dictation system. Departure Departure Impression: Primary Impression: Vaginal bleeding during , antepartum Disposition: 01 HOME, SELF-CARE Condition: STABLE Referrals: MARCIN REAVES-Ole (PCP) Patient Instructions: Vaginal Bleeding During , [id number] Additional Instructions: Thank you for allowing us to participate in your care today. Followup with your primary care physician in 3 days if your symptoms do not improve. If you do not have a primary care provider you can ask for a list of our primary care providers. Return to the emergency department you have any new or concerning findings. This should be evaluated by the primary care physician and any necessary consulting services for continued management within a few days after discharge. Return to emergency room if you have any new or concerning symptoms including but not limited to fever, chills, nausea, vomiting, intractable pain, any new rashes, chest pain, shortness of air, uncontrolled bleeding, difficulty breathing, and/or vision loss. You may have been prescribed medication that can change in your level of thinking and ability to operate machinery. These medications include hydrocodone and Ativan. Also, Benadryl has been known to do this as well. Be sure to check with your pharmacist and ask if the medications you've prescribed can affect your level of consciousness. I recommend not operating heavy machinery or driving while on medication such as these. Scripts Morphine Sulfate 15 Mg Tablet1 Tab PO PRN Q6-8HRS PRN SEVERE PAIN #8 TAB Prov:ALEXANDREA FULLER MD 11/11/16 ALEXANDREA FULLER MD Nov 11, 2016 20:35
[2016-11-11 20:48] LABS: BASO # 0.1 x10^3/uL (0.0-0.2); BASO % 1 % (0-3); EOS % 1 % (0-3); HEMOGLOBIN 13.1 g/dL (12.0-15.5); LYMPH % 32 % (24-48); MEAN CORPUSCULAR HEMOGLOBIN 31 pg (25-35); MEAN CORPUSCULAR HGB CONC 34 g/dL (31-37); MEAN CORPUSCULAR VOLUME 93 fL (79-100); MONO % 6 % (0-9); NEUT % 61 % (31-73); PLATELET COUNT 224 x10^3/uL (140-400); RED BLOOD COUNT 4.19 x10^6/uL (3.50-5.40); RED CELL DISTRIBUTION WIDTH 12.8 % (11.5-14.5); WHITE BLOOD COUNT 12.5 x10^3/uL (4.0-11.0)
[2016-11-11 21:05] LABS: CREATININE 0.5 mg/dL (0.6-1.0); GFR 145.9; POTASSIUM 3.5 mmol/L (3.5-5.1)
--- NOTE | 2016-11-11 21:39 | RAD ---
PROCEDURE Ob ultrasound less than 14 weeks 11/11/2016 HISTORY First trimester with vaginal bleeding for 3 hours. TECHNIQUE Using the distended urinary bladder as a sonographic window, a real-time ultrasound examination of the pelvis was performed. Multiple images were obtained. FINDINGS A gestational sac is seen within the endometrial canal within the fundus/body of the uterus. Within this gestational sac a pole is seen. The CRL of this pole measures 2.62 centimeters. This corresponds to an estimated gestational age by ultrasound of 9 weeks 3 days +or minus a standard deviation of 7 days. cardiac activity is seen with heart rate of 165 beats per minute. An area of subchorionic hemorrhage is seen inferior to the gestational sac within the uterus. This measures 1.9 centimeters in size. The uterus is otherwise within normal limits. Both ovaries are within normal limits in size. The right ovary measures 4.7 x 2.8 x 2.6 centimeters in size. A 2.8 centimeter corpus luteum is seen involving right ovary. The left ovary measures 4.8 x 3.3 x 1.8 centimeters in size. No free fluid is seen. IMPRESSION Single living IUP with an estimated gestational age by ultrasound of 9 weeks 3 days +or minus a standard deviation of 7 days. The estimated date of delivery by ultrasound is 06/13/2017. Electronically signed by: Papa Petersen MD (Nov 11, 2016 21:38:33)
[2016-11-11 22:07] VITALS: BP 155/85
== END 2016-11-11 22:33 | disposition home or self-care (01) ==
LOC: ER 19:44
DX: O20.9 Hemorrhage in early pregnancy, unspecified (principal); O26.891 Other specified pregnancy related conditions, first trimester; R10.30 Lower abdominal pain, unspecified; I50.9 Heart failure, unspecified; O99.89 Other specified diseases and conditions complicating pregnancy, childbirth and the puerperium; M19.90 Unspecified osteoarthritis, unspecified site; O16.1 Unspecified maternal hypertension, first trimester; Z3A.09 9 weeks gestation of pregnancy; Z88.6 Allergy status to analgesic agent; Z88.1 Allergy status to other antibiotic agents; Z88.2 Allergy status to sulfonamides; Z88.8 Allergy status to other drugs, medicaments and biological substances
CPT/HCPCS: 36415; 76801; 80048; 84702; 85027; 99285-25

== ENCOUNTER 2016-12-10 15:43 | Emergency (ER) | payer OTHER ==
[~2016-12-10] VITALS: Ht 165.1 cm; Wt 160.1 kg
[~2016-12-10 15:43] MED LIST changes: +MORP15TA PO
[2016-12-10 15:51] VITALS: BP 143/74
--- NOTE | 2016-12-10 17:05 | ED.ADGEN ---
Past Medical History Past Medical History: Arthritis, CHF, Hypertension, Liver Disease, UTI, Other Additional Past Medical Histor: preeclampsia; 9 miscarriages; septal defect in uterus Past Surgical History: Additional Past Surgical Histo: cervical CONIZATION Additional Information: 0.5 PPD Alcohol Use: None Drug Use: None Adult General Chief Complaint Chief Complaint: ABDOMINAL PAIN IN HPI HPI Patient is a 31 year old G 10, P1, AB 8 , 14 week female who presents with intermittent right lower quadrant/pelvic pain described as deep and cramping. Patient has had symptoms since this morning. She reports complications throughout her current including subchorionic hemorrhage , marginal placenta previa, with intermittent vaginal bleeding for the past month and a half. She currently denies vaginal bleeding, discharge, urinary frequency urgency, flank pain. No nausea vomiting or diarrhea reviewed. No other acute symptoms or complaints. 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 Bishop Review of Systems Review of Systems Review symptoms as prescribed. All other review symptoms are negative. Allergies Allergies Allergies Coded Allergies Type Severity Reaction Last Updated Verified NSAIDS (Non-Steroidal Anti-Inflamma Allergy Intermediate 08/20/16 Yes Sulfa (Sulfonamide Antibiotics) Allergy Intermediate 08/20/16 Yes cephalexin Allergy Intermediate 08/20/16 Yes prednisone Allergy Intermediate 08/20/16 Yes sulfamethoxazole Allergy Intermediate 08/20/16 Yes trimethoprim Allergy Intermediate 08/20/16 Yes nitrofurantoin Allergy Unknown 11/08/16 Yes Physical Exam Physical Exam Constitutional: Well developed, well nourished, no acute distress, non-toxic appearance. HENT: Normocephalic, atraumatic, bilateral external ears normal, oropharynx moist, no oral exudates, nose normal. Eyes: PERRLA, EOMI, conjunctiva normal, no discharge. Neck: Normal range of motion, no tenderness. Cardiovascular:Heart rate regular rhythm, no murmur. Lungs & Thorax: Bilateral breath sounds clear to auscultation. Abdomen: Bowel sounds normal, soft, diffuse right lower quadrant/pelvic pain, minimal tenderness. Body habitus limiting evaluation. Skin: Warm, dry, no erythema, no rash. Back: No tenderness, no CVA tenderness. Extremities: No tenderness, no cyanosis, no clubbing, ROM intact, no edema. Neurologic: Alert and oriented X 3, normal motor function, normal sensory function, no focal deficits noted. Psychologic: Affect normal, judgement normal, mood normal. Current Patient Data Vital Signs Vital Signs Date Time Temp Pulse Resp B/P (MAP) Pulse Ox O2 Delivery O2 Flow Rate FiO2 12/10/16 15:51 97.9 92 20 143/74 (97) 97 Room Air 97.9 EKG EKG [] Radiology/Procedures Radiology/Procedures [] Impressions: Pelvic pain and Course & Med Decision Making Course & Med Decision Making Pertinent Labs and Imaging studies reviewed. (See chart for details) [Patient abruptly left AMA following initial evaluation. She states she does not want to wait on any testing or studies and prefers to follow-up with her OB/ DEDICATED OWNER OPERATOR. Patient departed the emergency department prior to my ability discuss concerns with patient.. Dragon Disclaimer Dragon Disclaimer This electronic medical record was generated, in whole or in part, using a voice recognition dictation system. TAMIKO ABREU DO December 10, 2016 17:05
== END 2016-12-10 16:08 | disposition left against medical advice (07) ==
LOC: ER 15:43
DX: O26.892 Other specified pregnancy related conditions, second trimester (principal); R10.2 Pelvic and perineal pain; M19.90 Unspecified osteoarthritis, unspecified site; I50.9 Heart failure, unspecified; O99.332 Smoking (tobacco) complicating pregnancy, second trimester; O16.2 Unspecified maternal hypertension, second trimester; Z88.6 Allergy status to analgesic agent; Z88.1 Allergy status to other antibiotic agents; Z88.2 Allergy status to sulfonamides; Z88.8 Allergy status to other drugs, medicaments and biological substances; Z3A.14 14 weeks gestation of pregnancy; Z87.440 Personal history of urinary (tract) infections
CPT/HCPCS: 99281

== ENCOUNTER 2016-12-29 16:06 | Emergency (ER) | payer OTHER ==
[~2016-12-29] VITALS: Ht 165.1 cm; Wt 158.8 kg
[2016-12-29] MEDS ORDERED: ACETAMINOPHEN 325 MG TABLET. PO ONE (17:30)
[2016-12-29 17:39] LABS: BILIRUBIN,URINE NEGATIVE (NEG); GLUCOSE,URINE NEGATIVE (NEG); NITRITE,URINE POSITIVE (NEG); PROTEIN,URINE NEGATIVE (NEG-TRACE)
[2016-12-29 17:48] LABS: BACTERIA,URINE MODERATE /HPF (0-FEW); RBC,URINE 0 /HPF (0-2); SQUAMOUS EPITHELIAL CELL,UR MOD /LPF; WBC,URINE 0 /HPF (0-4)
[2016-12-29 18:08] VITALS: BP 153/99
[2016-12-29] MEDS ORDERED: AMOX500T PO (18:15)
--- NOTE | 2016-12-29 18:15 | PHYS DOC ---
Past Medical History Past Medical History: Arthritis, CHF, Hypertension, Liver Disease, UTI, Other Additional Past Medical Histor: preeclampsia;9 miscarriages;septal defect in uterus,FATTY LIVER DS,OBESITY Past Surgical History: Additional Past Surgical Histo: cervical CONIZATION Alcohol Use: None Drug Use: None Adult General Chief Complaint Chief Complaint: BACK PAIN - NO INJURY HPI HPI 31-year-old female presenting to the emergency department currently 17 weeks by last menstrual period followed by Dr. Gibbs who comes to the emergency department with low back pain/bilateral flank pain that radiates into the groin. She has polyuria and dysuria as well. Onset 2 days. Location abdomen and back. Duration intermittent. No alleviating factors present. Review of systems is negative for chest pain fevers chills. She denies vaginal bleeding or recent trauma. All other review of systems is negative unless otherwise noted in history of present illness. Review of Systems Review of Systems SEE ABOVE. Current Medications Current Medications Current Medications Medications (Trade) Dose Ordered Sig/Kathy Start Time Stop Time Status Last Admin Dose Admin Acetaminophen (Tylenol) 650 mg 1X ONCE 12/29/16 17:30 12/29/16 17:31 DC 12/29/16 17:39 650 MG Allergies Allergies Allergies Coded Allergies Type Severity Reaction Last Updated Verified NSAIDS (Non-Steroidal Anti-Inflamma Allergy Intermediate 08/20/16 Yes Sulfa (Sulfonamide Antibiotics) Allergy Intermediate 08/20/16 Yes cephalexin Allergy Intermediate 08/20/16 Yes prednisone Allergy Intermediate 08/20/16 Yes sulfamethoxazole Allergy Intermediate 08/20/16 Yes trimethoprim Allergy Intermediate 08/20/16 Yes nitrofurantoin Allergy Unknown 11/08/16 Yes Physical Exam Physical Exam Constitutional: Well developed, well nourished, no acute distress, non-toxic appearance. [] HENT: Normocephalic, atraumatic, bilateral external ears normal, oropharynx moist, no oral exudates, nose normal. Eyes: PERRLA, EOMI, conjunctiva normal, no discharge. [] Neck: Normal range of motion, no tenderness, supple, no stridor. Cardiovascular:Heart rate regular rhythm, no murmur [] Lungs & Thorax: Bilateral breath sounds clear to auscultation Abdomen: Bowel sounds normal, soft, no tenderness, no masses, no pulsatile masses. gravid uterus 4cm below the umbilicus. Skin: Warm, dry, no erythema, no rash. [] Back: No tenderness, mild left and right CVA tenderness. Extremities: No tenderness, no cyanosis, no clubbing, ROM intact, no edema. Neurologic: Alert and oriented X 3, normal motor function, normal sensory function, no focal deficits noted. [] Psychologic: Affect normal, judgement normal, mood normal. Current Patient Data Vital Signs Vital Signs Date Time Temp Pulse Resp B/P (MAP) Pulse Ox O2 Delivery O2 Flow Rate FiO2 12/29/16 16:33 98.4 116 20 188/101 (130) 95 Room Air 98.4 Lab Values Laboratory Tests Test 12/29/16 16:40 Urine Collection Type Unknown Urine Color Yellow Urine Clarity Cloudy Urine pH 6.0 Urine Specific [place] >=1.030 Urine Protein Negative mg/dL (NEG-TRACE) Urine Glucose (UA) Negative mg/dL (NEG) Urine Ketones (Stick) Trace mg/dL (NEG) Urine Blood Negative (NEG) Urine Nitrite Positive (NEG) Urine Bilirubin Negative (NEG) Urine Urobilinogen Dipstick 1.0 mg/dL (0.2 mg/dL) Urine Leukocyte Esterase Negative (NEG) Urine RBC 0 /HPF (0-2) Urine WBC 0 /HPF (0-4) Urine Squamous Epithelial Cells Mod /LPF Urine Bacteria Moderate /HPF (0-FEW) Urine Mucus Mod /LPF EKG EKG [] Radiology/Procedures Radiology/Procedures [] Course & Med Decision Making Course & Med Decision Making Pertinent Labs and Imaging studies reviewed. (See chart for details) [] 31 year-old 17 week female presenting to the emergency department with bilateral flank pain and suprapubic abdominal pain. Patient has a history of preeclampsia and is hypertensive in our emergency department. She denies headache vision changes chest pain. Urinalysis here suggestive of urinary tract infection. No protein in the urine at this time. I would've preferred to use Keflex for Macrobid however the patient is allergic. We will use amoxicillin and have her follow up with her director medicare sales. I recommended the patient follow up with her director medicare sales over the next 2-3 days. They were to return if their symptoms worsened or if they were concerned for any reason. [id number] discharge instructions and return precautions were given. Patient's questions were answered to their satisfaction. Patient is comfortable plan. Dragon Disclaimer Dragon Disclaimer This electronic medical record was generated, in whole or in part, using a voice recognition dictation system. Departure Departure Impression: Primary Impression: Urinary tract infection Disposition: 01 HOME, SELF-CARE Condition: STABLE Referrals: MARCIN REAVSE-Ole (PCP) Patient Instructions: - Urinary Tract Infection Additional Instructions: Thank you for allowing us to participate in your care today. Followup with your primary care physician in 3 days if your symptoms do not improve. If you do not have a primary care provider you can ask for a list of our primary care providers. Return to the emergency department you have any new or concerning findings. This should be evaluated by the primary care physician and any necessary consulting services for continued management within a few days after discharge. Return to emergency room if you have any new or concerning symptoms including but not limited to fever, chills, nausea, vomiting, intractable pain, any new rashes, chest pain, shortness of air, uncontrolled bleeding, difficulty breathing, and/or vision loss. Scripts Amoxicillin (AMOXICILLIN) 500 Mg Tablet 1 TAB PO TID, #30 TAB Prov: ALEXANDREA FULLER MD 12/29/16 ALEXANDREA FULLER MD December 29, 2016 18:15
== END 2016-12-29 18:31 | disposition home or self-care (01) ==
LOC: ER 16:06
DX: O23.42 Unspecified infection of urinary tract in pregnancy, second trimester (principal); R30.0 Dysuria; M19.90 Unspecified osteoarthritis, unspecified site; I11.0 Hypertensive heart disease with heart failure; I50.9 Heart failure, unspecified; E66.9 Obesity, unspecified; Z68.43 Body mass index [BMI] 50.0-59.9, adult; Z88.6 Allergy status to analgesic agent; Z88.1 Allergy status to other antibiotic agents; Z88.2 Allergy status to sulfonamides; Z88.8 Allergy status to other drugs, medicaments and biological substances; Z3A.17 17 weeks gestation of pregnancy
CPT/HCPCS: 81001; 87086; 99284

== ENCOUNTER 2017-01-21 22:05 | Observation (INO) | payer OTHER ==
[~2017-01-21 22:05] MED LIST changes: +AMOX500T PO; -CLIN-44 PO; +CLIN150C14 PO; +CLIN300C8 PO; -CLIN300C86 PO
[2017-01-21 22:34] LABS: BARBITURATES NEG (NEG); BENZODIAZEPINES POS (NEG); CANNABINOIDS NEG (NEG); COCAINE NEG (NEG); METHADONE NEG (NEG); OPIATES NEG (NEG); PHENCYCLIDINE NEG (NEG)
[2017-01-21 22:40] LABS: BILIRUBIN,URINE NEGATIVE (NEG); GLUCOSE,URINE NEGATIVE (NEG); NITRITE,URINE NEGATIVE (NEG); PROTEIN,URINE NEGATIVE (NEG-TRACE)
[2017-01-21 22:41] LABS: BACTERIA,URINE FEW /HPF (0-FEW); RBC,URINE 0 /HPF (0-2); SQUAMOUS EPITHELIAL CELL,UR MOD /LPF; WBC,URINE RARE /HPF (0-4)
== END 2017-01-21 23:29 | disposition home or self-care (01) ==
LOC: 3 SO LND 22:05
PROVIDERS: ADMIT Specialist; ATTEND Specialist
DX: O26.892 Other specified pregnancy related conditions, second trimester (principal); R10.30 Lower abdominal pain, unspecified; R35.0 Frequency of micturition; Z3A.20 20 weeks gestation of pregnancy
CPT/HCPCS: 81001; G0378; G0379; G0481

== ENCOUNTER 2017-03-01 19:20 | Observation (INO) | payer OTHER ==
[2017-03-01 20:10] LABS: NEG OBC AMNIO NEG; POS OBC AMNIO POS
[2017-03-01 20:14] LABS: BILIRUBIN,URINE NEGATIVE (NEG); GLUCOSE,URINE NEGATIVE (NEG); NITRITE,URINE NEGATIVE (NEG); PH,URINE 5.5; PROTEIN,URINE NEGATIVE (NEG-TRACE); UROBILINOGEN,URINE 0.2 mg/dL (0.2 mg/dL)
[2017-03-01 20:19] LABS: BARBITURATES NEG (NEG); BENZODIAZEPINES POS (NEG); CANNABINOIDS NEG (NEG); COCAINE NEG (NEG); METHADONE NEG (NEG); OPIATES NEG (NEG); PHENCYCLIDINE NEG (NEG)
[2017-03-01 20:22] LABS: BACTERIA,URINE MANY /HPF (0-FEW); RBC,URINE 0 /HPF (0-2); SQUAMOUS EPITHELIAL CELL,UR MANY /LPF; WBC,URINE OCC /HPF (0-4)
== END 2017-03-01 21:00 | disposition home or self-care (01) ==
LOC: 3 SO LND 19:20
PROVIDERS: ADMIT Specialist; ATTEND Specialist
DX: O42.912 Preterm premature rupture of membranes, unspecified as to length of time between rupture and onset of labor, second trimester (principal); O26.892 Other specified pregnancy related conditions, second trimester; R10.9 Unspecified abdominal pain; Z3A.26 26 weeks gestation of pregnancy
CPT/HCPCS: 36415; 80307; 81001; 84112; G0378; G0379; 87086; G0479

== ENCOUNTER 2017-04-22 15:47 | Observation (INO) | payer OTHER ==
[2017-04-22] MEDS ORDERED: IV RINGERS,LACTATED 1000ML 1,000 ML IV SCH (16:28)
[2017-04-22 17:21] LABS: BILIRUBIN,URINE NEGATIVE (NEG); GLUCOSE,URINE NEGATIVE (NEG); NITRITE,URINE NEGATIVE (NEG); PH,URINE 6.5; PROTEIN,URINE NEGATIVE (NEG-TRACE); UROBILINOGEN,URINE 0.2 mg/dL (0.2 mg/dL)
[2017-04-22 17:26] LABS: BARBITURATES NEG (NEG); BENZODIAZEPINES POS (NEG); CANNABINOIDS NEG (NEG); COCAINE NEG (NEG); METHADONE NEG (NEG); OPIATES NEG (NEG); PHENCYCLIDINE NEG (NEG)
[2017-04-22] MEDS ORDERED: hydrOXYzine PAMOATE 25 MG CAPSULE PO ONE (17:45)
== END 2017-04-22 18:20 | disposition home or self-care (01) ==
LOC: 3 SO LND 15:47
PROVIDERS: ADMIT Specialist; ATTEND Specialist
DX: O21.2 Late vomiting of pregnancy (principal); O26.893 Other specified pregnancy related conditions, third trimester; R10.30 Lower abdominal pain, unspecified; R10.10 Upper abdominal pain, unspecified; Z3A.32 32 weeks gestation of pregnancy
CPT/HCPCS: 80307; 81003; G0378; G0379; G0479

== ENCOUNTER 2017-05-20 17:32 | Emergency (ER) | payer OTHER ==
[~2017-05-20] VITALS: Ht 172.7 cm; Wt 158.8 kg
[2017-05-20] MEDS ORDERED: LIDOCAINE 1% / SOD BICARB 8.4% 20 ML VIAL. IJ ONE ×2 (17:52→19:00)
[2017-05-20] MEDS ORDERED: ACETAMINOPHEN 325 MG TABLET. PO ONE (18:30)
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
[2017-05-20 18:57] VITALS: BP 158/101
--- NOTE | 2017-05-21 08:53 | RAD ---
Three-view right foot study History: Trauma and pain. Findings: No acute fracture or dislocation or osteolytic process is seen. Dorsal soft tissue swelling is seen. Moderate-sized plantar spur of the calcaneus is evident. IMPRESSION: No acute fracture.
== END 2017-05-20 19:03 | disposition home or self-care (01) ==
LOC: EEVIPCON 17:32 → ER 17:32
DX: O9A.23 Injury, poisoning and certain other consequences of external causes complicating the puerperium (principal); S01.81XA Laceration without foreign body of other part of head, initial encounter; S90.31XA Contusion of right foot, initial encounter; I11.0 Hypertensive heart disease with heart failure; I50.9 Heart failure, unspecified; M19.90 Unspecified osteoarthritis, unspecified site; Z87.440 Personal history of urinary (tract) infections; Z98.890 Other specified postprocedural states; Z88.1 Allergy status to other antibiotic agents; Z88.2 Allergy status to sulfonamides; Z88.6 Allergy status to analgesic agent; Z88.8 Allergy status to other drugs, medicaments and biological substances; Y00.XXXA Assault by blunt object, initial encounter; Y93.89 Activity, other specified; Y92.89 Other specified places as the place of occurrence of the external cause; Y99.8 Other external cause status
CPT/HCPCS: 12013; 73630; 99284-25

== ENCOUNTER 2017-08-03 09:09 | Emergency (ER) | payer OTHER ==
[2017-08-03 10:35] LABS: OBC FLU VALID
== END 2017-08-03 10:58 | disposition home or self-care (01) ==
LOC: ER 09:09
DX: J06.9 Acute upper respiratory infection, unspecified (principal); B97.89 Other viral agents as the cause of diseases classified elsewhere; I11.0 Hypertensive heart disease with heart failure; I50.9 Heart failure, unspecified; M19.90 Unspecified osteoarthritis, unspecified site; E66.01 Morbid (severe) obesity due to excess calories; Z68.43 Body mass index [BMI] 50.0-59.9, adult; Z88.2 Allergy status to sulfonamides; Z87.440 Personal history of urinary (tract) infections; Z88.6 Allergy status to analgesic agent; Z88.1 Allergy status to other antibiotic agents; Z88.8 Allergy status to other drugs, medicaments and biological substances
CPT/HCPCS: 87804; 87804-59; 99284

== ENCOUNTER 2017-09-04 09:19 | Emergency (ER) | payer OTHER | END 2017-09-04 10:07 | disposition home or self-care (01) | LOC: ER 09:19 | DX: M54.5 Low back pain (principal); R11.2 Nausea with vomiting, unspecified; R19.7 Diarrhea, unspecified; I11.0 Hypertensive heart disease with heart failure; I50.9 Heart failure, unspecified; F17.200 Nicotine dependence, unspecified, uncomplicated; Z88.1 Allergy status to other antibiotic agents; Z88.2 Allergy status to sulfonamides; Z88.6 Allergy status to analgesic agent; Z88.5 Allergy status to narcotic agent | CPT/HCPCS: 99283 ==

== ENCOUNTER 2017-09-10 04:02 | Emergency (ER) | payer OTHER | END 2017-09-10 05:20 | disposition home or self-care (01) | LOC: ER 04:02 | DX: S93.401A Sprain of unspecified ligament of right ankle, initial encounter (principal); I11.0 Hypertensive heart disease with heart failure; I50.9 Heart failure, unspecified; Z88.1 Allergy status to other antibiotic agents; Z88.2 Allergy status to sulfonamides; Z88.6 Allergy status to analgesic agent; Z88.8 Allergy status to other drugs, medicaments and biological substances; W01.0XXA Fall on same level from slipping, tripping and stumbling without subsequent striking against object, initial encounter; Y93.89 Activity, other specified; Y99.8 Other external cause status; Y92.89 Other specified places as the place of occurrence of the external cause | CPT/HCPCS: 73610; 99284 ==

== ENCOUNTER → 2017-12-05 | Outpatient (CLI) | payer OTHER | END | disposition home or self-care (01) | LOC: RAD 10:13 | DX: M48.061 Spinal stenosis, lumbar region without neurogenic claudication (principal); M25.562 Pain in left knee; I11.0 Hypertensive heart disease with heart failure; I50.9 Heart failure, unspecified | CPT/HCPCS: 72100; 73560 ==

== ENCOUNTER 2018-02-06 17:40 | Emergency (ER) | payer SELFPAY, OTHER ==
[2018-02-06 18:25] LABS: BILIRUBIN,URINE NEGATIVE (NEG); CLARITY,URINE CLOUDY; COLOR,URINE YELLOW; GLUCOSE,URINE NEGATIVE (NEG); NITRITE,URINE NEGATIVE (NEG); PH,URINE 5.5; PROTEIN,URINE NEGATIVE (NEG-TRACE)
[2018-02-06 18:41] LABS: RBC,URINE 0 /HPF (0-2)
[2018-02-06 18:42] LABS: AMORPHOUS SEDIMENT,UR PRESENT /HPF; BACTERIA,URINE FEW /HPF (0-FEW); SQUAMOUS EPITHELIAL CELL,UR MOD /LPF
[2018-02-06] MEDS: IV NORMAL SALINE 1000ML BAG 1,000 ML IV ×2 (18:48→19:35)
[2018-02-06 18:49] LABS: ADD MAN DIFF? NO
[2018-02-06 18:52] LABS: BASO # 0.1 x10^3/uL (0.0-0.2); BASO % 1 % (0-3); EOS # 0.1 x10^3/uL (0.0-0.7); EOS % 1 % (0-3); HEMATOCRIT 44.7 % (36.0-47.0); HEMOGLOBIN 15.1 g/dL (12.0-15.5); LYMPH % 30 % (24-48); MEAN CORPUSCULAR HEMOGLOBIN 31 pg (25-35); MEAN CORPUSCULAR HGB CONC 34 g/dL (31-37); MEAN CORPUSCULAR VOLUME 93 fL (79-100); MONO # 0.9 x10^3/uL (0.0-1.1); MONO % 7 % (0-9); NEUT # 8.5 x10^3uL (1.8-7.7); NEUT % 62 % (31-73); PLATELET COUNT 268 x10^3/uL (140-400); RED BLOOD COUNT 4.81 x10^6/uL (3.50-5.40); RED CELL DISTRIBUTION WIDTH 14.2 % (11.5-14.5); WHITE BLOOD COUNT 13.6 x10^3/uL (4.0-11.0)
[2018-02-06 18:59] LABS: ANION GAP 8 (6-14); BLOOD UREA NITROGEN 12 mg/dL (7-20); CALCIUM 9.4 mg/dL (8.5-10.1); CARBON DIOXIDE 25 mmol/L (21-32); CHLORIDE 106 mmol/L (98-107); CREATININE 0.8 mg/dL (0.6-1.0); GFR 84.2; GLUCOSE 123 mg/dL (70-99); POTASSIUM 3.9 mmol/L (3.5-5.1); SODIUM 139 mmol/L (136-145)
[2018-02-06] MEDS: ACETAMINOPHEN 500 MG TABLET PO (19:58)
[2018-02-06] MEDS: NITROFURANTOIN MONOHYD/M-CRYST 100 MG CAPSULE. PO (19:58)
== END 2018-02-06 20:30 | disposition home or self-care (01) ==
LOC: ER 17:40
DX: O26.891 Other specified pregnancy related conditions, first trimester (principal); R30.0 Dysuria; R35.0 Frequency of micturition; O23.41 Unspecified infection of urinary tract in pregnancy, first trimester; O99.341 Other mental disorders complicating pregnancy, first trimester; F41.9 Anxiety disorder, unspecified; F32.9 Major depressive disorder, single episode, unspecified; I11.0 Hypertensive heart disease with heart failure; I50.9 Heart failure, unspecified; O16.1 Unspecified maternal hypertension, first trimester; Z3A.01 Less than 8 weeks gestation of pregnancy; Z88.2 Allergy status to sulfonamides; Z88.6 Allergy status to analgesic agent; Z88.1 Allergy status to other antibiotic agents; Z88.8 Allergy status to other drugs, medicaments and biological substances
CPT/HCPCS: 36415; 76801; 80048; 81001; 84702; 85025; 99285-25; J7030

== ENCOUNTER 2018-02-16 21:10 | Emergency (ER) | payer SELFPAY ==
[2018-02-16] MEDS: ONDANSETRON PF 4 MG/2 ML VIAL. IV (22:03)
[2018-02-16] MEDS: ACETAMINOPHEN 500 MG TABLET PO (22:03)
[2018-02-17] MEDS: oxyCODONE IR 5 MG TABLET PO (01:13)
[2018-02-19 07:18] LABS: URINE HCG POC HCG POSITIVE (Negative)
== END 2018-02-17 01:25 | disposition home or self-care (01) ==
LOC: ER 02-17 01:25
DX: O26.891 Other specified pregnancy related conditions, first trimester (principal); R10.2 Pelvic and perineal pain; O10.111 Pre-existing hypertensive heart disease complicating pregnancy, first trimester; I11.0 Hypertensive heart disease with heart failure; O99.341 Other mental disorders complicating pregnancy, first trimester; F41.8 Other specified anxiety disorders; O99.211 Obesity complicating pregnancy, first trimester; M19.90 Unspecified osteoarthritis, unspecified site; Z68.44 Body mass index [BMI] 60.0-69.9, adult; Z88.2 Allergy status to sulfonamides; Z88.8 Allergy status to other drugs, medicaments and biological substances; Z88.5 Allergy status to narcotic agent; Z88.1 Allergy status to other antibiotic agents; Z3A.01 Less than 8 weeks gestation of pregnancy
CPT/HCPCS: 76801; 81025; 96374; 99284; J2405

== ENCOUNTER 2018-03-03 11:20 | Emergency (ER) | payer SELFPAY ==
[2018-03-03 12:31] LABS: ADD MAN DIFF? NO
[2018-03-03 12:34] LABS: BASO # 0.1 x10^3/uL (0.0-0.2); BASO % 1 % (0-3); EOS # 0.1 x10^3/uL (0.0-0.7); EOS % 1 % (0-3); HEMATOCRIT 42.4 % (36.0-47.0); HEMOGLOBIN 14.9 g/dL (12.0-15.5); LYMPH # 2.7 x10^3/uL (1.0-4.8); LYMPH % 26 % (24-48); MEAN CORPUSCULAR HEMOGLOBIN 32 pg (25-35); MEAN CORPUSCULAR HGB CONC 35 g/dL (31-37); MEAN CORPUSCULAR VOLUME 92 fL (79-100); MONO # 0.5 x10^3/uL (0.0-1.1); MONO % 5 % (0-9); NEUT # 6.9 x10^3uL (1.8-7.7); NEUT % 67 % (31-73); PLATELET COUNT 232 x10^3/uL (140-400); RED BLOOD COUNT 4.61 x10^6/uL (3.50-5.40); RED CELL DISTRIBUTION WIDTH 13.4 % (11.5-14.5); WHITE BLOOD COUNT 10.3 x10^3/uL (4.0-11.0)
[2018-03-03 12:49] LABS: ANION GAP 8 (6-14); BLOOD UREA NITROGEN 6 mg/dL (7-20); BUN/CREATININE RATIO 10 (6-20); CALCIUM 8.9 mg/dL (8.5-10.1); CARBON DIOXIDE 26 mmol/L (21-32); CHLORIDE 104 mmol/L (98-107); CREATININE 0.6 mg/dL (0.6-1.0); GFR 117.4; GLUCOSE 87 mg/dL (70-99); POTASSIUM 3.9 mmol/L (3.5-5.1); SODIUM 138 mmol/L (136-145)
[2018-03-03 12:53] LABS: ALBUMIN 2.9 g/dL (3.4-5.0); ALBUMIN/GLOBULIN RATIO 0.7 (1.0-1.7); ALK PHOS 66 U/L (46-116); ALT (SGPT) 24 U/L (14-59); AST (SGOT) 18 U/L (15-37); TOTAL BILIRUBIN 0.3 mg/dL (0.2-1.0); TOTAL PROTEIN 6.8 g/dL (6.4-8.2)
[2018-03-03] MEDS: ACETAMINOPHEN 500 MG TABLET PO (13:15)
== END 2018-03-03 13:45 | disposition home or self-care (01) ==
LOC: ER 11:20
DX: O20.0 Threatened abortion (principal); O99.341 Other mental disorders complicating pregnancy, first trimester; F41.8 Other specified anxiety disorders; O99.211 Obesity complicating pregnancy, first trimester; O10.011 Pre-existing essential hypertension complicating pregnancy, first trimester; O99.411 Diseases of the circulatory system complicating pregnancy, first trimester; I11.0 Hypertensive heart disease with heart failure; M19.90 Unspecified osteoarthritis, unspecified site; Z88.2 Allergy status to sulfonamides; Z88.5 Allergy status to narcotic agent; Z88.1 Allergy status to other antibiotic agents; Z88.8 Allergy status to other drugs, medicaments and biological substances; Z3A.10 10 weeks gestation of pregnancy
CPT/HCPCS: 36415; 76801; 80053; 84702; 85025; 99285-25

== ENCOUNTER 2018-03-07 04:17 | Observation (INO) | payer OTHER ==
[~2018-03-07] VITALS: Ht 165.1 cm; Wt 170.1 kg
[~2018-03-07 04:17] MED LIST changes: +CYCL10TA2 PO; +METH35.4 TP; +ONDA4TAB10 SL; +TRAM-48 PO
[2018-03-07 05:00] LABS: BILIRUBIN,URINE NEGATIVE (NEG); NITRITE,URINE NEGATIVE (NEG); PH,URINE 5.5; PROTEIN,URINE >=300 mg/dL (NEG-TRACE); UROBILINOGEN,URINE 0.2 mg/dL (0.2 mg/dL)
[2018-03-07 05:06] LABS: COLOR,URINE RED
[2018-03-07 05:07] LABS: BACTERIA,URINE 0 /HPF (0-FEW); CLARITY,URINE BLOODY; RBC,URINE TNTC /HPF (0-2); SQUAMOUS EPITHELIAL CELL,UR FEW /LPF; WBC,URINE 20-40 /HPF (0-4)
[2018-03-07 05:18] LABS: BASO % 0 % (0-3); EOS % 0 % (0-3); HEMOGLOBIN 14.2 g/dL (12.0-15.5); LYMPH # 1.7 x10^3/uL (1.0-4.8); LYMPH % 9 % (24-48); MEAN CORPUSCULAR HEMOGLOBIN 32 pg (25-35); MEAN CORPUSCULAR HGB CONC 35 g/dL (31-37); MEAN CORPUSCULAR VOLUME 92 fL (79-100); MONO # 0.4 x10^3/uL (0.0-1.1); MONO % 2 % (0-9); NEUT # 17.6 x10^3uL (1.8-7.7); NEUT % 89 % (31-73); PLATELET COUNT 242 x10^3/uL (140-400); RED BLOOD COUNT 4.43 x10^6/uL (3.50-5.40); RED CELL DISTRIBUTION WIDTH 13.7 % (11.5-14.5); WHITE BLOOD COUNT 19.9 x10^3/uL (4.0-11.0)
[2018-03-07 05:23] LABS: CALCIUM 8.8 mg/dL (8.5-10.1); CREATININE 0.8 mg/dL (0.6-1.0); GFR 84.2
[2018-03-07 05:28] LABS: ALBUMIN/GLOBULIN RATIO 0.7 (1.0-1.7); MAGNESIUM 1.6 mg/dL (1.8-2.4); TOTAL BILIRUBIN 0.2 mg/dL (0.2-1.0); TOTAL PROTEIN 7.3 g/dL (6.4-8.2)
--- NOTE | 2018-03-07 05:31 | PHYS DOC ---
Past Medical History Past Medical History: Anxiety, Arthritis, CHF, Depression, Hypertension, Liver Disease, UTI, Other Additional Past Medical Histor: preeclampsia; miscarriages;septal defect in uterus,FATTY LIVER DS,OBESITY Past Surgical History: , Other Additional Past Surgical Histo: cervical CONIZATION Smoking: Cigarettes Alcohol Use: None Drug Use: None Adult General Chief Complaint Chief Complaint: VAGINAL BLEEDING HPI HPI 32 y/o female [id number] presents via EMS with reports of progressive vaginal bleeding. at approximately 10 weeks. Patient reports had been seen recently here at [place] for some vaginal bleeding with concern for threatened miscarriage on 03/03/18. IUP noted with good heart tones measuring 9 weeks and 2 days per [facility] review. Reports had then followed up with her OB - Dr. Gibbs and was tested for infectious process. Concern for Bacterial Vaginosis and was therefore started on antibiotics. Patient reports continued bleeding and therefore presented to [facility] last night at approximately 1800. Was notified that it appeared her cervix was open and she was actively miscarrying. Patient reports upon returning home now with progressive bleeding and passing large clots. Reports she called Dr. Gibbs regarding, who instructed patient to present to the ED for evaluation. Reports some lightheadedness and dizziness. Denies fever/chills. Patient reports last ate anything at 1800 last night. Reports did have some water with Tylenol at earlier this AM. Review of Systems Review of Systems Constitutional: Denies fever or chills [] Eyes: Denies change in visual acuity, redness, or eye pain [] HENT: Denies nasal congestion or sore throat [] Respiratory: Denies cough or shortness of breath [] Cardiovascular: Denies chest pain or syncope. GI: Reports abdominal pain. Denies vomiting, bloody stools or diarrhea [] : Denies dysuria or hematuria [] Musculoskeletal: Denies back pain or joint pain [] Integument: Denies rash or skin lesions [] Neurologic: Denies headache, focal weakness or sensory changes [] Complete systems were reviewed and found to be within normal limits, except as documented in this note. Current Medications Current Medications Current Medications Medications (Trade) Dose Ordered Sig/Kathy Start Time Stop Time Status Last Admin Dose Admin Fentanyl Citrate (Fentanyl 2ml Vial) 50 mcg 1X ONCE 03/07/18 05:45 03/07/18 05:46 03/07/18 05:41 50 MCG Allergies Allergies Allergies Coded Allergies Type Severity Reaction Last Updated Verified NSAIDS (Non-Steroidal Anti-Inflamma Allergy Intermediate 08/20/16 Yes Sulfa (Sulfonamide Antibiotics) Allergy Intermediate 08/20/16 Yes cephalexin Allergy Intermediate 08/20/16 Yes nitrofurantoin Allergy Intermediate 01/22/17 Yes prednisone Allergy Intermediate 08/20/16 Yes sulfamethoxazole Allergy Intermediate 08/20/16 Yes trimethoprim Allergy Intermediate 08/20/16 Yes Physical Exam Physical Exam Constitutional: Well developed, well nourished, anxious, non-toxic appearance. [ ] HENT: Normocephalic, atraumatic, oropharynx moist, Eyes: PERRL, EOMI, conjunctiva normal, no discharge. [] Neck: Normal range of motion, no tenderness, supple, no stridor. [] Cardiovascular: Heart rate regular rhythm, no murmur [] Lungs & Thorax: Bilateral breath sounds clear to auscultation [] Abdomen: Soft, no tenderness, no masses, Skin: Warm, dry, no erythema, no rash. [] Back: No tenderness, no CVA tenderness. [] Extremities: No tenderness, no cyanosis, no clubbing, ROM intact, no edema. [] Neurologic: Alert and oriented X 3, normal motor function, normal sensory function, no focal deficits noted. [] Psychologic: Affect normal, judgement normal, mood anxious Current Patient Data Vital Signs Vital Signs Date Time Temp Pulse Resp B/P (MAP) Pulse Ox O2 Delivery O2 Flow Rate FiO2 03/07/18 05:41 20 97 Room Air 03/07/18 04:17 98.3 102 122/62 (82) 98.3 Lab Values Laboratory Tests Test 03/07/18 04:25 03/07/18 05:00 Urine Collection Type Unknown Urine Color Red Urine Clarity Bloody Urine pH 5.5 Urine Specific [place] >=1.030 Urine Protein >=300 mg/dL (NEG-TRACE) Urine Glucose (UA) Negative mg/dL (NEG) Urine Ketones (Stick) 15 mg/dL (NEG) Urine Blood Large (NEG) Urine Nitrite Negative (NEG) Urine Bilirubin Negative (NEG) Urine Urobilinogen Dipstick 0.2 mg/dL (0.2 mg/dL) Urine Leukocyte Esterase Small (NEG) Urine RBC Tntc /HPF (0-2) Urine WBC 20-40 /HPF (0-4) Urine Squamous Epithelial Cells Few /LPF Urine Bacteria 0 /HPF (0-FEW) Urine Mucus Mod /LPF White Blood Count 19.9 x10^3/uL (4.0-11.0) H Red Blood Count 4.43 x10^6/uL (3.50-5.40) Hemoglobin 14.2 g/dL (12.0-15.5) Hematocrit 41.0 % (36.0-47.0) Mean Corpuscular Volume 92 fL (79-100) Mean Corpuscular Hemoglobin 32 pg (25-35) Mean Corpuscular Hemoglobin Concent 35 g/dL (31-37) Red Cell Distribution Width 13.7 % (11.5-14.5) Platelet Count 242 x10^3/uL (140-400) Neutrophils (%) (Auto) 89 % (31-73) H Lymphocytes (%) (Auto) 9 % (24-48) L Monocytes (%) (Auto) 2 % (0-9) Eosinophils (%) (Auto) 0 % (0-3) Basophils (%) (Auto) 0 % (0-3) Neutrophils # (Auto) 17.6 x10^3uL (1.8-7.7) H Lymphocytes # (Auto) 1.7 x10^3/uL (1.0-4.8) Monocytes # (Auto) 0.4 x10^3/uL (0.0-1.1) Eosinophils # (Auto) 0.0 x10^3/uL (0.0-0.7) Basophils # (Auto) 0.0 x10^3/uL (0.0-0.2) Platelet Estimate Pending Sodium Level 135 mmol/L (136-145) L Potassium Level 4.0 mmol/L (3.5-5.1) Chloride Level 101 mmol/L (98-107) Carbon Dioxide Level 22 mmol/L (21-32) Anion Gap 12 (6-14) Blood Urea Nitrogen 9 mg/dL (7-20) Creatinine 0.8 mg/dL (0.6-1.0) Estimated GFR (Cockcroft-Gault) 84.2 BUN/Creatinine Ratio 11 (6-20) Glucose Level 124 mg/dL (70-99) H Calcium Level 8.8 mg/dL (8.5-10.1) Magnesium Level 1.6 mg/dL (1.8-2.4) L Total Bilirubin 0.2 mg/dL (0.2-1.0) Aspartate Amino Transferase (AST) 12 U/L (15-37) L Alanine Aminotransferase (ALT) 23 U/L (14-59) Alkaline Phosphatase 72 U/L (46-116) Total Protein 7.3 g/dL (6.4-8.2) Albumin 3.0 g/dL (3.4-5.0) L Albumin/Globulin Ratio 0.7 (1.0-1.7) L Laboratory Tests 03/07/18 05:00 Laboratory Tests 03/07/18 05:00 EKG EKG [] Radiology/Procedures Radiology/Procedures PROCEDURE: OB <14 WKS W/TV INDICATION: heavy vag bleeding, COMPARISON: March 03, 2018 TECHNIQUE: Grayscale and color ultrasound images uterus and adnexa. Transabdominal and transvaginal images obtained. FINDINGS: Uterus: 160 x 100 x 76 mm. 2 endometrial stripes are again seen with gestational sac on the right. pole is again seen but no heartbeat is seen. The gestational sac has a somewhat irregular shape with a pole located near the cervix Maternal ovaries are not seen. IMPRESSION: 1. Intrauterine gestational sac is identified with a pole but there is no longer a heartbeat identified. The gestational sac also has a somewhat irregular shape with a pole now located near the cervical region. This constellation of findings is concerning for early failure. There is some hypoechoic material seen adjacent to the gestational sac as well which could be from subchorionic hematoma. Course & Med Decision Making Course & Med Decision Making Pertinent Labs and Imaging studies reviewed. (See chart for details) 32-year-old female approximately 10 weeks presents with report of continued vaginal bleeding with lightheadedness and dizziness. Patient recently seen at [facility] for same and told she was having a threatened miscarriage. Labs obtained and posted to chart. H&H stable. Ultrasound obtained with findings concerning for incomplete miscarriage with nonviable fetus which would require D&C. Discussed case with Dr. Tobar (OB) who is in agreement to take patient to the OR for D&C. Discussed findings and plan with patient, who acknowledges understanding and agreement. Dragon Disclaimer Dragon Disclaimer This electronic medical record was generated, in whole or in part, using a voice recognition dictation system. Departure Departure Impression: Primary Impression: Incomplete miscarriage Disposition: ADMITTED INPATIENT (to OR) Admitting Physician: Other (Bernie (OB)) Condition: GUARDED Referrals: ANNELISE GIBBS MD (PCP) RUSSELL WEBB DO Mar 07, 2018 05:31
[2018-03-07] MEDS ORDERED: miSOPROStol 200MCG TAB 200 MCG TABLET ONE (05:42)
[2018-03-07] MEDS ORDERED: OXYTOCIN 10 UNIT/ML VIAL. ONE ×3 (05:42→07:29)
[2018-03-07] MEDS ORDERED: fentaNYL PF VIAL 100 MCG/2 ML VIAL IV ONE (05:45)
--- NOTE | 2018-03-07 05:54 | RAD ---
INDICATION: heavy vag bleeding, COMPARISON: March 03, 2018 TECHNIQUE: Grayscale and color ultrasound images uterus and adnexa. Transabdominal and transvaginal images obtained. FINDINGS: Uterus: 160 x 100 x 76 mm. 2 endometrial stripes are again seen with gestational sac on the right. pole is again seen but no heartbeat is seen. The gestational sac has a somewhat irregular shape with a pole located near the cervix Maternal ovaries are not seen. IMPRESSION: 1. Intrauterine gestational sac is identified with a pole but there is no longer a heartbeat identified. The gestational sac also has a somewhat irregular shape with a pole now located near the cervical region. This constellation of findings is concerning for early failure. There is some hypoechoic material seen adjacent to the gestational sac as well which could be from subchorionic hematoma. Electronically signed by: Gabriele Stauffer MD (03/07/2018 5:51 AM) [id number]
[2018-03-07] MEDS ORDERED: fentaNYL PF VIAL 100 MCG/2 ML VIAL ONE ×4 (06:23→08:49)
[2018-03-07] MEDS ORDERED: ONDANSETRON PF 4 MG/2 ML VIAL. ONE (06:32)
[2018-03-07] MEDS ORDERED: PROPOFOL 20 ML IV ONE (06:32)
[2018-03-07] MEDS ORDERED: LIDOCAINE 2% PF Vial for OR 5 ML VIAL. ONE (06:32)
[2018-03-07] MEDS ORDERED: DEXAMETHASONE SOD PHOS 20 MG/5 ML VIAL. ONE (06:32)
[2018-03-07] MEDS: fentaNYL PF VIAL 100 MCG/2 ML VIAL IV PRN ×6 (06:46→09:24)
[2018-03-07] MEDS ORDERED: CLINDAMYCIN 900MG PREMIX 50 ML IV ONE ×2 (06:56→07:00)
[2018-03-07] MEDS: IV RINGERS,LACTATED 1000ML 1,000 ML IV SCH ×2 (06:58→08:52)
--- NOTE | 2018-03-07 06:58 | PDOC1 ---
OB - History Hx of Present Care: Good Care Medical Complications: None Past Family/Social History * Past Medical, Surgical, Family and Obstetric Histories reviewed from chart. OB - Chief Complaint & HPI Date of Admission: Date of Admission: Chief Complaint/History : 12 Para: 2 EDC: Oct 03, 2018 Reason for admission: vaginal bleeding, other (Incomplete ab) Admission Nurse Assessment Rev: Yes OB - Admission Exam Physical Exam Vitals: VS - Last 72 Hours, by Label Date Time Temp Pulse Resp B/P (MAP) Pulse Ox O2 Delivery O2 Flow Rate FiO2 03/07/18 06:50 15 97 Room Air 03/07/18 06:46 15 97 Room Air 03/07/18 06:15 98.3 90 15 142/73 96 Room Air 98.3 03/07/18 05:45 96 22 138/75 (96) 97 Room Air 03/07/18 05:41 20 97 Room Air 03/07/18 04:17 98.3 102 20 122/62 (82) 97 Room Air 98.3 HEENT: Normal, Nasal Mucosa Normal, Oropharynx Normal, Moist Membranes, Fontanelles Normal Heart: Regular Rate Lungs: Clear, Equal Abdomen: Other (obese) Reflexes: Normal Assessment/Plan Assessment/Plan 9week incomplete ab ANNELISE GOYAL MD Mar 07, 2018 06:58
[2018-03-07] MEDS ORDERED: PROCHLORPERAZINE 10 MG/2 ML VIAL. IV PRN (07:00)
[2018-03-07] MEDS ORDERED: fentaNYL PF VIAL 100 MCG/2 ML VIAL IV PRN ×2 (07:00)
[2018-03-07] MEDS ORDERED: ONDANSETRON PF 4 MG/2 ML VIAL. IV PRN ×2 (07:00→07:45)
[2018-03-07] MEDS ORDERED: LIDOCAINE 1% PF 2 ML VIAL. ID PRN (07:00)
[2018-03-07] MEDS ORDERED: MORPHINE SULFATE 2 MG/ML VIAL. IV PRN (07:00)
--- NOTE | 2018-03-07 07:00 | PDOC ---
BRIEF OPERATIVE NOTE Date: Mar 07, 2018 Pre-Op Diagnosis Incomplete Ab Post-Op Diagnosis Same Procedure Performed Suction D and C Surgeon Bernie Anesthesia Type: General Specimens Obtained POC Complications Stable ANNELISE GOYAL MD Mar 07, 2018 07:00
[2018-03-07] MEDS ORDERED: NAPR-514 PO (07:04)
[2018-03-07] MEDS ORDERED: METH0.2T36 PO (07:04)
[2018-03-07] MEDS ORDERED: DOXY100T PO (07:04)
[2018-03-07] MEDS ORDERED: HYDR-971 PO (07:04)
[2018-03-07] MEDS ORDERED: oxyCODONE IR 5 MG TABLET PO PRN (07:45)
[2018-03-07] MEDS ORDERED: 0.9 % SODIUM CHLORIDE 10 ML DISP.SYRIN. IV PRN (07:45)
[2018-03-07] MEDS ORDERED: METOCLOPRAMIDE HCL 10 MG/2 ML VIAL. IV PRN (07:45)
[2018-03-07] MEDS ORDERED: oxyCODONE/APAP 5/325 1 TAB TABLET PO PRN ×2 (07:45)
[2018-03-07] MEDS ORDERED: DEXTROSE 50% 25 GM / 50ML DISP.SYRIN. IV PRN (07:45)
[2018-03-07] MEDS ORDERED: MAG HYDROX/ALUMINUM HYD/SIMETH 30 ML ORAL.SUSP PO PRN (07:45)
[2018-03-07] MEDS ORDERED: diphenhydrAMINE HCL 25 MG CAPSULE PO PRN (07:45)
[2018-03-07] MEDS ORDERED: SEVOFLURANE 31 TO 60 MINUTES. IH ONE (07:57)
[2018-03-07 08:09] LABS: % BANDS 2 % (0-9); % LYMPHS 8 % (24-48); % MONOS 1 % (0-10); % SEGS 89 % (35-66); PLT ESTIMATE ADEQUATE (ADEQUATE)
[2018-03-07] MEDS ORDERED: DOXYCYCLINE HYCLATE 100 MG TABLET PO SCH (09:00)
[2018-03-07] MEDS: METHYLERGONOVINE MALEATE 0.2 MG TABLET PO SCH ×2 (09:00→11:31)
[2018-03-07 09:50] VITALS: BP 85/49
[2018-03-07 11:00] VITALS: BP 129/78
[2018-03-07 11:40] VITALS: BP 110/68
--- NOTE | 2018-03-12 10:07 | PATHOLOGY ---
[facility] Accession Number: [id number] . 01 Material submitted: . PRODUCTS OF CONCEPTION . 01 Clinical history: . missed AB . 02 Diagnosis: Intrauterine contents, dilatation and curettage: - Chorionic villi present. . (SK:mml; 03/09/18) [facility]/03/09/2018 . 02 Electronically signed: . Bradley Eisenberg MD, Pathologist NPI- [id number] . 01 Gross description: . The specimen is received in formalin, labeled "Nikolai, Shari and products of conception", are multiple irregular fragment of walden-white to dark brown hemorrhagic soft tissues measuring 7.5 x 7.0 x 1.7 cm in aggregate. Spongy placental tissue and parts are identified but no discrete grapelike cystic structures. Chemistry Quality Control Technician sections are submitted in A1-A3. . . ([facility]; 03/07/2018) [facility]/SHS . 02 Pathologist provided ICD-10: O02.1 . 02 CPT . 581074 Performed at: 01 [facility] [address] [facility] [address], [place] [id number] MD Panda Ward MD Phone: [phone] Performed at: 02 [facility] [address] [id number] MD Catarino Seth MD Phone: [phone]
--- NOTE | 2018-03-16 13:22 | OP ---
DATE OF SURGERY: 03/07/2018 PREOPERATIVE DIAGNOSIS: Incomplete . POSTOPERATIVE DIAGNOSIS: Incomplete . PROCEDURE: Suction D and C. SURGEON: Chaka Gbibs M.D. NETWORK ARCHITECT MANAGER: None. ANESTHESIA: General. SPECIMENS: Products of conception. ESTIMATED BLOOD LOSS: 100 mL. FLUIDS: Crystalloid. COMPLICATIONS: None. CONDITION: Stable. DESCRIPTION OF PROCEDURE: After risks, benefits, indications and alternatives were discussed in detail with the patient, the patient was brought to the OR theater, placed in the dorsal lithotomy position in Braulio stirrups. After adequate general anesthesia, the patient was prepped and draped in the usual sterile manner. Posterior weighted speculum was placed in the vaginal vault. Cervix was grasped with a single-tooth tenaculum. Cervix was dilated up to receive a #10 curved suction cannula. Secondary to patient's obesity, this was somewhat difficult. Suction curettage was performed in all quadrants. Products of conception were seen going through the clear tubing. A sharp curettage was then performed until uterine cry was heard. Suction cannula was once again placed. No further products of conception were seen going through clear tubing. A single tooth tenaculum was removed. Any blood or debris in the vaginal vault was wiped clean with a sponge stick and the procedure was terminated. Sponge, needle and instrument counts were correct x 2 per nursing staff. The patient went to postop anesthesia recovery in stable condition. CHAKA GIBBS MD DR: KAMINI/robert JOB#: [id number] / [id number]
== END 2018-03-07 11:45 | disposition home or self-care (01) ==
LOC: ER 04:17 → SDC 06:12 → 3 NORTH 07:43
PROVIDERS: ADMIT Specialist; ATTEND Specialist
DX: O03.4 Incomplete spontaneous abortion without complication (principal); I11.0 Hypertensive heart disease with heart failure; I50.9 Heart failure, unspecified; Z87.891 Personal history of nicotine dependence; Z79.899 Other long term (current) drug therapy; Z3A.10 10 weeks gestation of pregnancy
CPT/HCPCS: 36415; 59812; 76801; 76817; 80053; 81001; 83735; 85007; 85025; 86850; 86900; 86901; 87086; 88305; 96374; 99285; C1887; G0378; J1100; J2001; J2590; J2704; J3010; J3490; G0379; J2405; J7120

== ENCOUNTER 2018-03-21 16:43 | Emergency (ER) | payer OTHER ==
[~2018-03-21 16:43] MED LIST changes: +DOXY100T PO; +METH0.2T36 PO; +NAPR-514 PO
== END 2018-03-21 17:22 | disposition left against medical advice (07) ==
LOC: ER 16:43
DX: R10.2 Pelvic and perineal pain (principal); G89.11 Acute pain due to trauma; Z53.21 Procedure and treatment not carried out due to patient leaving prior to being seen by health care provider; X50.9XXA Other and unspecified overexertion or strenuous movements or postures, initial encounter; Y93.89 Activity, other specified; Y92.89 Other specified places as the place of occurrence of the external cause; Y99.8 Other external cause status

== ENCOUNTER 2018-03-22 11:15 | Emergency (ER) | payer OTHER ==
[~2018-03-22] VITALS: Ht 165.1 cm; Wt 170.1 kg
[2018-03-22 11:50] LABS: BILIRUBIN,URINE NEGATIVE (NEG); COLOR,URINE YELLOW; NITRITE,URINE NEGATIVE (NEG); PH,URINE 5.5; PROTEIN,URINE NEGATIVE (NEG-TRACE); UROBILINOGEN,URINE 0.2 mg/dL (0.2 mg/dL)
[2018-03-22] MEDS ORDERED: IV NORMAL SALINE 1000ML BAG 1,000 ML IV ONE (12:15)
[2018-03-22] MEDS ORDERED: DIPHTH,PERTUSS(ACELL),TET TOX 0.5 ML DISP.SYRIN. VAX IM ONE (12:30)
[2018-03-22 12:35] LABS: BACTERIA,URINE MANY /HPF (0-FEW); CLARITY,URINE HAZY; RBC,URINE OCC /HPF (0-2); SQUAMOUS EPITHELIAL CELL,UR MANY /LPF
[2018-03-22 12:36] LABS: BASO # 0.1 x10^3/uL (0.0-0.2); BASO % 1 % (0-3); EOS # 0.2 x10^3/uL (0.0-0.7); EOS % 1 % (0-3); HEMATOCRIT 42.8 % (36.0-47.0); HEMOGLOBIN 14.7 g/dL (12.0-15.5); LYMPH # 3.6 x10^3/uL (1.0-4.8); LYMPH % 28 % (24-48); MEAN CORPUSCULAR HEMOGLOBIN 32 pg (25-35); MEAN CORPUSCULAR HGB CONC 34 g/dL (31-37); MEAN CORPUSCULAR VOLUME 93 fL (79-100); MONO # 0.7 x10^3/uL (0.0-1.1); MONO % 6 % (0-9); NEUT # 8.2 x10^3uL (1.8-7.7); NEUT % 64 % (31-73); PLATELET COUNT 273 x10^3/uL (140-400); RED BLOOD COUNT 4.58 x10^6/uL (3.50-5.40); RED CELL DISTRIBUTION WIDTH 13.7 % (11.5-14.5); WHITE BLOOD COUNT 12.9 x10^3/uL (4.0-11.0)
[2018-03-22 13:32] LABS: AMPHETAMINE/METHAMPHETAMINE POS (NEG); BARBITURATES NEG (NEG); BENZODIAZEPINES POS (NEG); CANNABINOIDS NEG (NEG); COCAINE NEG (NEG); METHADONE NEG (NEG); OPIATES NEG (NEG); PHENCYCLIDINE NEG (NEG)
--- NOTE | 2018-03-22 13:35 | RAD ---
PELVIS W/TV Clinical Indication: DX: Pelvic Pain; DNC 2 weeks ago Comparison: Obstetric ultrasound, less than 14 weeks, March 07, 2018. TECHNIQUE: Real-time ultrasound imaging of the pelvis using transabdominal and transvaginal window is performed. Findings: Technically difficult exam due to patient body habitus. Uterus measures 9.7 x 8.1 x 5.8 cm. 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 The endometrial stripe is normal measuring 6 mm. Intrauterine gestational sac is no longer identified. The ovaries are relatively symmetric in size. There is normal blood flow. Trace pelvic free fluid. IMPRESSION: 1. Intrauterine gestational sac is no longer identified. 2. Trace pelvic free fluid. Electronically signed by: Jani Loza MD (03/22/2018 1:31 PM) [id number]
[2018-03-22 13:57] LABS: CALCIUM 8.7 mg/dL (8.5-10.1); CREATININE 0.8 mg/dL (0.6-1.0); GFR 84.2; POTASSIUM 3.8 mmol/L (3.5-5.1)
[2018-03-22 14:00] LABS: ALBUMIN 3.3 g/dL (3.4-5.0); ALBUMIN/GLOBULIN RATIO 0.8 (1.0-1.7); TOTAL BILIRUBIN 0.4 mg/dL (0.2-1.0); TOTAL PROTEIN 7.2 g/dL (6.4-8.2)
--- NOTE | 2018-03-22 14:17 | PHYS DOC ---
Past Medical History Past Medical History: Anxiety, Arthritis, Bipolar, CHF, Depression, Hypertension, Liver Disease, Schizophrenia, UTI, Other Additional Past Medical Histor: preeclampsia; 11miscarriages;septal defect in uterus,FATTY LIVER DS,OBESITY Past Surgical History: , Other Additional Past Surgical Histo: cervical CONIZATION, D&C 03/08/18 Additional Information: smoke 1 1/2 pack/day Alcohol Use: None Drug Use: None Adult General Chief Complaint Chief Complaint: ABDOMINAL PAIN HPI HPI Patient is a 32 year old female with history of anxiety, hypertension, depression, CHF, bipolar, who presents today with multiple complaints. Patient states she had a miscarriage and ended up with a D&C 2 weeks ago she states she has had 11 miscarriages and 2 live births. Patient states she had normal bleeding post D&C and it stopped. She states yesterday she was helping the mother who is currently in the hospital admitted for a stroke and the mother fell on her pelvic. Patient states she had brownish discharge yesterday. She states she would like to be checked to make sure everything is okay. Review of Systems Review of Systems Constitutional: Denies fever or chills [] Eyes: Denies change in visual acuity, redness, or eye pain [] HENT: Denies nasal congestion or sore throat [] Respiratory: Denies cough or shortness of breath [] Cardiovascular: No additional information not addressed in HPI [] GI: Reports pelvic pain. Denies nausea, vomiting, bloody stools or diarrhea [] : Denies dysuria or hematuria [] Musculoskeletal: Denies back pain or joint pain [] Integument: Denies rash or skin lesions [] Neurologic: Denies headache, focal weakness or sensory changes [] Endocrine: Denies polyuria or polydipsia [] All other systems were reviewed and found to be within normal limits, except as documented in this note. Current Medications Current Medications Current Medications Medications (Trade) Dose Ordered Sig/Kathy Start Time Stop Time Status Last Admin Dose Admin Diphtheria/ Tetanus/Acell Pertussis (Boostrix) 0.5 ml ONCE ONCE 03/22/18 12:30 03/22/18 12:31 DC 03/22/18 13:18 0.5 ML Sodium Chloride 1,000 ml @ 1,000 mls/hr 1X ONCE 03/22/18 12:15 03/22/18 13:14 DC 03/22/18 13:16 1,000 MLS/HR Allergies Allergies Allergies Coded Allergies Type Severity Reaction Last Updated Verified NSAIDS (Non-Steroidal Anti-Inflamma Allergy Intermediate 08/20/16 Yes Sulfa (Sulfonamide Antibiotics) Allergy Intermediate 08/20/16 Yes cephalexin Allergy Intermediate 08/20/16 Yes nitrofurantoin Allergy Intermediate 01/22/17 Yes prednisone Allergy Intermediate 08/20/16 Yes sulfamethoxazole Allergy Intermediate 08/20/16 Yes trimethoprim Allergy Intermediate 08/20/16 Yes Physical Exam Physical Exam Constitutional: Morbidly obese patient, well nourished, no acute distress, non- toxic appearance. [] HENT: Normocephalic, atraumatic, bilateral external ears normal, oropharynx moist, no oral exudates, nose normal. [] Eyes: PERRLA, EOMI, conjunctiva normal, no discharge. [] Neck: Normal range of motion, no tenderness, supple, no stridor. [] Cardiovascular:Heart rate regular rhythm, no murmur [] Lungs & Thorax: Bilateral breath sounds clear to auscultation [] Abdomen: Bowel sounds normal, soft, no tenderness, no masses, no pulsatile masses. [] Pelvic exam External pelvic appears normal, cervix is not well visualized due to body habitus, no CMT, no adnexal tenderness, trace brownish discharge in the vaginal vault. Skin: Warm, dry, no erythema, no rash. [] Back: No tenderness, no CVA tenderness. [] Extremities: No tenderness, no cyanosis, no clubbing, ROM intact, no edema. [] Neurologic: Alert and oriented X 3, normal motor function, normal sensory function, no focal deficits noted. [] Psychologic: Flat affect, very talkative Current Patient Data Vital Signs Vital Signs Date Time Temp Pulse Resp B/P (MAP) Pulse Ox O2 Delivery O2 Flow Rate FiO2 03/22/18 11:45 98.8 115 24 134/70 (91) 95 Room Air 98.8 Lab Values Laboratory Tests Test 03/22/18 11:28 03/22/18 11:35 03/22/18 12:05 03/22/18 13:00 Urine Collection Type Void Urine Color Yellow Urine Clarity Hazy Urine pH 5.5 Urine Specific [place] 1.015 Urine Protein Negative mg/dL (NEG-TRACE) Urine Glucose (UA) Negative mg/dL (NEG) Urine Ketones (Stick) Negative mg/dL (NEG) Urine Blood Small (NEG) Urine Nitrite Negative (NEG) Urine Bilirubin Negative (NEG) Urine Urobilinogen Dipstick 0.2 mg/dL (0.2 mg/dL) Urine Leukocyte Esterase Negative (NEG) Urine RBC Occ /HPF (0-2) Urine WBC 1-4 /HPF (0-4) Urine Squamous Epithelial Cells Many /LPF Urine Bacteria Many /HPF (0-FEW) Urine Mucus Marked /LPF POC Urine HCG, Qualitative Hcg negative (Negative) White Blood Count 12.9 x10^3/uL (4.0-11.0) H Red Blood Count 4.58 x10^6/uL (3.50-5.40) Hemoglobin 14.7 g/dL (12.0-15.5) Hematocrit 42.8 % (36.0-47.0) Mean Corpuscular Volume 93 fL (79-100) Mean Corpuscular Hemoglobin 32 pg (25-35) Mean Corpuscular Hemoglobin Concent 34 g/dL (31-37) Red Cell Distribution Width 13.7 % (11.5-14.5) Platelet Count 273 x10^3/uL (140-400) Neutrophils (%) (Auto) 64 % (31-73) Lymphocytes (%) (Auto) 28 % (24-48) Monocytes (%) (Auto) 6 % (0-9) Eosinophils (%) (Auto) 1 % (0-3) Basophils (%) (Auto) 1 % (0-3) Neutrophils # (Auto) 8.2 x10^3uL (1.8-7.7) H Lymphocytes # (Auto) 3.6 x10^3/uL (1.0-4.8) Monocytes # (Auto) 0.7 x10^3/uL (0.0-1.1) Eosinophils # (Auto) 0.2 x10^3/uL (0.0-0.7) Basophils # (Auto) 0.1 x10^3/uL (0.0-0.2) Ethyl Alcohol Level < 10 mg/dL (0-10) Urine Opiates Screen Neg (NEG) Urine Methadone Screen Neg (NEG) Urine Barbiturates Neg (NEG) Urine Phencyclidine Screen Neg (NEG) Urine Amphetamine/Methamphetamine Pos (NEG) Urine Benzodiazepines Screen Pos (NEG) Urine Cocaine Screen Neg (NEG) Urine Cannabinoids Screen Neg (NEG) Urine Ethyl Alcohol Neg (NEG) Test 03/22/18 13:38 Sodium Level 140 mmol/L (136-145) Potassium Level 3.8 mmol/L (3.5-5.1) Chloride Level 105 mmol/L (98-107) Carbon Dioxide Level 27 mmol/L (21-32) Anion Gap 8 (6-14) Blood Urea Nitrogen 9 mg/dL (7-20) Creatinine 0.8 mg/dL (0.6-1.0) Estimated GFR (Cockcroft-Gault) 84.2 BUN/Creatinine Ratio 11 (6-20) Glucose Level 91 mg/dL (70-99) Calcium Level 8.7 mg/dL (8.5-10.1) Total Bilirubin 0.4 mg/dL (0.2-1.0) Aspartate Amino Transferase (AST) 15 U/L (15-37) Alanine Aminotransferase (ALT) 24 U/L (14-59) Alkaline Phosphatase 114 U/L (46-116) Total Protein 7.2 g/dL (6.4-8.2) Albumin 3.3 g/dL (3.4-5.0) L Albumin/Globulin Ratio 0.8 (1.0-1.7) L Lipase 112 U/L (73-393) Laboratory Tests 03/22/18 12:05 Laboratory Tests 03/22/18 13:38 Microbiology 03/22/18 Wet Prep - Final, Complete EKG EKG [] Radiology/Procedures Radiology/Procedures [] Course & Med Decision Making Course & Med Decision Making Pertinent Labs and Imaging studies reviewed. (See chart for details) This is a 32-year-old female patient presenting to the ED today complaining of pelvic contusion after the mother who is currently admitted in the hospital for stroke fellow her pelvic. Patient is morbidly obese. She had a miscarriage 2 weeks ago and ended up with a D&C 2 weeks ago. On physical exam she had spotting. Pelvic ultrasound is negative for any acute findings, UA is negative, negative urine hCG, CBC CMP with no acute findings. Patient was discharged home. She is to follow-up with her own PCP or [facility] in the next 7 days. Dragon Disclaimer Dragon Disclaimer This electronic medical record was generated, in whole or in part, using a voice recognition dictation system. Departure Departure Impression: Primary Impression: Abdominal pain Additional Impression: Dysfunctional uterine bleeding Disposition: 01 HOME, SELF-CARE Condition: STABLE Referrals: NO PCP (PCP) ANNELISE GOYAL MD Follow-up with your [facility] in the next 7 days TERRELL JOHNSON MD Follow-up in the next 7 days Patient Instructions: Abdominal Pain, Contusion, Uterine Bleeding, Dysfunctional, [id number] Additional Instructions: You were evaluated in the emergency room, your ultrasound was negative for any acute findings. Your lab work was negative for any acute findings. Please follow -up with your own [facility] or the provided [facility] in the next 7 days. Problem Qualifiers Primary Impression: Abdominal pain Abdominal location: lower abdomen, unspecified Qualified Codes: R10.30 - Lower abdominal pain, unspecified DANTEVIVIANRAMY FIELD MAP TECHNICIAN Mar 22, 2018 14:17
[2018-03-22 14:33] VITALS: BP 144/80
[2018-03-23 14:31] LABS: GC PROBE Negative (Negative)
== END 2018-03-22 14:37 | disposition home or self-care (01) ==
LOC: ER 11:15
DX: N93.8 Other specified abnormal uterine and vaginal bleeding (principal); R10.30 Lower abdominal pain, unspecified; F31.9 Bipolar disorder, unspecified; I11.0 Hypertensive heart disease with heart failure; I50.9 Heart failure, unspecified; F41.9 Anxiety disorder, unspecified; F20.9 Schizophrenia, unspecified; Z87.440 Personal history of urinary (tract) infections; F17.200 Nicotine dependence, unspecified, uncomplicated; Z88.1 Allergy status to other antibiotic agents; Z88.2 Allergy status to sulfonamides; Z88.5 Allergy status to narcotic agent; Z88.6 Allergy status to analgesic agent; Z88.8 Allergy status to other drugs, medicaments and biological substances
CPT/HCPCS: 36415; 76830; 76856; 80053; 80307; 81001; 81025; 83690; 85025; 87086; 87491; 87591; 90471; 90715; 99285; G0480; J7030; Q0111; G0479

== ENCOUNTER 2018-04-19 09:15 | Emergency (ER) | payer OTHER ==
[~2018-04-19] VITALS: Ht 165.1 cm; Wt 158.8 kg
[2018-04-19 09:39] VITALS: BP 156/89
[2018-04-19] MEDS ORDERED: GUAI-108 PO (10:17)
[2018-04-19] MEDS ORDERED: AZIT1PAC9 PO (10:17)
[2018-04-19] MEDS ORDERED: METH-38 PO (10:17)
[2018-04-19] MEDS ORDERED: PROAIR HFA8.5 GM INH (10:17)
--- NOTE | 2018-04-19 10:17 | PHYS DOC ---
Past Medical History Past Medical History: Anxiety, Arthritis, Bipolar, CHF, Depression, Hypertension, Liver Disease, Schizophrenia, UTI, Other Additional Past Medical Histor: preeclampsia; 11miscarriages;septal defect in uterus,FATTY LIVER DS,OBESITY Past Surgical History: , Other Additional Past Surgical Histo: cervical CONIZATION, D&C 03/08/18 Alcohol Use: None Drug Use: None Adult General Chief Complaint Chief Complaint: multiple complaints HPI HPI Patient is a 32 year old female who presents to the emergency Department today with multiple complaints. She states she needs a refill of her Pro Air inhaler, a different muscle relaxer for her chronic back pain, and also reports a productive cough for the last week. Patient states that she had her flu shot yesterday and last night she developed fever of 101. She did not take anything for relief of the fever. She reports that the flu shot usually makes her feel sick. Pt complains of fatigue, chest congestion, productive cough, shortness of breath, wheezing, and nasal congestion for 1-2 weeks. In additon, she states that she was helping to transfer her mother who is wheelchair-bound a week ago when she strained her low back. She was prescribed Skelaxin by another hospital but it makes her extremely tired not allowing her to care for her child and mother. Patient states that she usually takes Robaxin and requests a refill of Robaxin to take. Review of Systems Review of Systems Constitutional: reports fever up to 101 last night and body aches HENT: reports nasal congestion and sore throat with post nasal drainage Respiratory: reports cough, wheezing, and shortness of breath [] Cardiovascular: Denies chest pain or palpitations Musculoskeletal: Reports low back pain after lifting mother. Integument: Denies rash or skin lesions [] Neurologic: Denies headache, focal weakness or sensory changes [] All other systems were reviewed and found to be within normal limits, except as documented in this note. Allergies Allergies Allergies Coded Allergies Type Severity Reaction Last Updated Verified NSAIDS (Non-Steroidal Anti-Inflamma Allergy Intermediate 08/20/16 Yes Sulfa (Sulfonamide Antibiotics) Allergy Intermediate 08/20/16 Yes cephalexin Allergy Intermediate 08/20/16 Yes nitrofurantoin Allergy Intermediate 01/22/17 Yes prednisone Allergy Intermediate 08/20/16 Yes sulfamethoxazole Allergy Intermediate 08/20/16 Yes trimethoprim Allergy Intermediate 08/20/16 Yes Physical Exam Physical Exam Constitutional: Well developed, well nourished, no acute distress, non-toxic appearance, morbidly obese. [] HENT: Normocephalic, atraumatic, bilateral external ears normal, oropharynx moist, no oral exudates, nose normal. [] Eyes: PERRLA, conjunctiva normal, no discharge. [] Neck: Normal range of motion, no tenderness, supple, no stridor. [] Cardiovascular:Heart rate regular rhythm, no murmur [] Lungs & Thorax: Bilateral breath sounds clear to auscultation, diminished in posterior bases [] Skin: Warm, dry, no erythema, no rash. [] Back: No bony tenderness Neurologic: Alert and oriented X 3, normal motor function, normal sensory function, no focal deficits noted. [] Psychologic: Affect normal, judgement normal, mood normal. [] Current Patient Data Vital Signs Vital Signs Date Time Temp Pulse Resp B/P (MAP) Pulse Ox O2 Delivery O2 Flow Rate FiO2 04/19/18 09:39 98.3 113 16 156/89 (111) 94 Room Air 98.3 EKG EKG [] Radiology/Procedures Radiology/Procedures [] Course & Med Decision Making Course & Med Decision Making Pertinent Labs and Imaging studies reviewed. (See chart for details) Patient refused a CXR, states that one was done at [facility] last week. Dx bronchitis, URI, back pain. Prescriptions written for proair, robaxin, mucinex, and z-pack. Patient verbalized an understanding of home care, medications, follow-up, and return to ED instructions and was in agreement with the plan of care.[] Dragon Disclaimer Dragon Disclaimer This electronic medical record was generated, in whole or in part, using a voice recognition dictation system. Departure Departure Impression: Primary Impression: Bronchitis Additional Impressions: Upper respiratory infection Low back pain Disposition: 01 HOME, SELF-CARE Condition: STABLE Referrals: NO PCP (PCP) Patient Instructions: Back Pain in , Bronchitis, [id number] Additional Instructions: Fill prescription(s) and use as directed. Tylenol as needed for pain/fever. Increase clear fluids. Avoid triggers such as smoke, fragrance, dust, and pollen. Follow-up with your primary care doctor next week. Return to the ER if your symptoms worsen. Scripts Azithromycin (AZITHROMYCIN PACKET) 1 Gm Packet 1 PACKET PO ONCE for 5 Days, #1 PACKET 0 Refills Prov: EMI ORNELAS APRN 04/19/18 Guaifenesin/Dextromethorphan (MUCINEX DM ER 600-30 MG TABLET) 1 Each Tab.er.12h 1 TAB PO PRN Q12HRS PRN for COUGH for 7 Days, #14 TAB 0 Refills Prov: EMI ORNELAS TUBE DEPATCHER 04/19/18 Albuterol Sulfate (PROAIR HFA INHALER) 8.5 Gm Hfa.aer.ad 1-2 PUFF INH PRN Q6HRS PRN for SHORTNESS OF BREATH for 30 Days, #1 INHALER 1 Refill Prov: EMI ORNELAS APRN 04/19/18 Methocarbamol (ROBAXIN-750) 750 Mg Tablet 2 TAB PO QID for 3 Days, #24 TAB 0 Refills Prov: EMI ORNELAS APRN 04/19/18 Problem Qualifiers Additional Impressions: Upper respiratory infection URI type: unspecified URI Qualified Codes: J06.9 - Acute upper respiratory infection, unspecified Low back pain Chronicity: acute Back pain laterality: bilateral Sciatica presence: without sciatica Qualified Codes: M54.5 - Low back pain EMI ORNELAS TUBE DEPATCHER Apr 19, 2018 10:17
== END 2018-04-19 10:37 | disposition home or self-care (01) ==
LOC: ER 09:15
DX: J40 Bronchitis, not specified as acute or chronic (principal); M54.5 Low back pain; J06.9 Acute upper respiratory infection, unspecified; G89.29 Other chronic pain; I50.9 Heart failure, unspecified; I11.0 Hypertensive heart disease with heart failure; F31.9 Bipolar disorder, unspecified; F41.9 Anxiety disorder, unspecified; F20.9 Schizophrenia, unspecified; Z87.440 Personal history of urinary (tract) infections; E66.9 Obesity, unspecified; Z68.43 Body mass index [BMI] 50.0-59.9, adult; Z88.2 Allergy status to sulfonamides; Z88.1 Allergy status to other antibiotic agents; Z88.5 Allergy status to narcotic agent; Z88.6 Allergy status to analgesic agent; Z88.8 Allergy status to other drugs, medicaments and biological substances
CPT/HCPCS: 99283

== ENCOUNTER 2018-06-17 11:57 | Emergency (ER) | payer SELFPAY ==
[~2018-06-17] VITALS: Ht 165.1 cm; Wt 158.8 kg
[~2018-06-17 11:57] MED LIST changes: +AZIT1PAC9 PO; +GUAI-108 PO; +METH-38 PO; +PROAIR HFA8.5 GM INH
[2018-06-17 12:35] VITALS: BP 148/93
[2018-06-17] MEDS ORDERED: ACETAMINOPHEN 500 MG TABLET PO ONE (13:15)
--- NOTE | 2018-06-17 13:43 | RAD ---
Examination: 3 views of the right knee HISTORY: History of multiple falls, posterior right knee pain COMPARISON: None available FINDINGS: The alignment of the knee joint grossly appears unremarkable. There is no acute fracture or dislocation identified. No significant knee joint effusion. IMPRESSION: No acute osseous findings. Electronically signed by: Boyd Wharton MD (06/17/2018 1:39 PM) [facility]
--- NOTE | 2018-06-17 15:20 | RAD ---
Examination: Right Lower Extremity Venous Doppler Ultrasound History: Right lower extremity pain, swelling Comparison: None Procedure: Lee scale, color flow 2D and spectal waveform analysis images are obtained with and without compression in the area of the common femoral vein, superficial femoral vein - femoral vein junction, main femoral vein (superficial femoral vein) and popliteal vein. Veins of the proximal calf are also imaged. Findings: There is normal duplex flow, color flow and compressibility of all visualized vein segments. No evidence of deep venous thrombus is present. Limited examination due to patient body habitus. The right superficial femoral vein could not be clearly identified. There is a complex appearing cystic structure identified in the popliteal fossa measuring 4.8 x 2.7 x 1.3 cm. Impression: 1. No evidence of deep venous thrombosis in the right lower extremity venous system. Limited examination due to patient body habitus. 2. 4.8 cm complex appearing cystic structure identified in the popliteal fossa likely popliteal cyst. Electronically signed by: Boyd Wharton MD (06/17/2018 3:17 PM) [facility]
[2018-06-17] MEDS ORDERED: KETOROLAC 60 MG/2 ML INJ. IM ONE (15:30)
[2018-06-17] MEDS ORDERED: ORPHENADRINE CITRATE 60 MG/2 ML VIAL. IM ONE (15:30)
[2018-06-17] MEDS ORDERED: KETOROLAC 30 MG/ML VIAL. ONE (15:32)
[2018-06-17] MEDS ORDERED: HYDR-971 PO (15:44)
[2018-06-17] MEDS ORDERED: CYCL10TA2 PO (15:44)
--- NOTE | 2018-06-17 15:44 | PHYS DOC ---
Past Medical History Past Medical History: Anxiety, Arthritis, Bipolar, CHF, Depression, Hypertension, Liver Disease, Schizophrenia, UTI, Other Additional Past Medical Histor: preeclampsia; 11miscarriages;septal defect in uterus,FATTY LIVER DS,OBESITY Past Surgical History: , Other Additional Past Surgical Histo: cervical CONIZATION, D&C 03/08/18 Additional Information: "1/2 PACK DAILY" Alcohol Use: None Drug Use: None Adult General Chief Complaint Chief Complaint: MECHANICAL FALL HPI HPI Patient is a 32 year old female who presents with complaining of right lower extremity pain. Patient states she has had right lower extremity pain in back of her knee for 2 weeks with ecchymosis of posterior of knee that resolved now. Patient states she had syncopal fall for the last 2 days and had more pain in her right knee. Patient denies shortness of breath, fever and chills, history of DVT but he states she is concern for possible DVT. Patient has morbid obesity. Review of Systems Review of Systems Constitutional: Denies fever or chills [] Eyes: Denies change in visual acuity, redness, or eye pain [] HENT: Denies nasal congestion or sore throat [] Respiratory: Denies cough or shortness of breath [] Cardiovascular: No additional information not addressed in HPI [] GI: Denies abdominal pain, nausea, vomiting, bloody stools or diarrhea [] : Denies dysuria or hematuria [] Musculoskeletal: Denies back pain or joint pain [] Integument: Denies rash or skin lesions [] Neurologic: Denies headache, focal weakness or sensory changes [] Endocrine: Denies polyuria or polydipsia [] All other systems were reviewed and found to be within normal limits, except as documented in this note. Current Medications Current Medications Current Medications Medications (Trade) Dose Ordered Sig/Kathy Start Time Stop Time Status Last Admin Dose Admin Acetaminophen (Tylenol) 1,000 mg 1X ONCE 06/17/18 13:15 06/17/18 13:16 DC Ketorolac Tromethamine (Toradol 30mg Vial) 30 mg 1X ONCE 06/17/18 15:45 06/17/18 15:46 06/17/18 15:39 30 MG Ketorolac Tromethamine (Toradol Im) 60 mg 1X ONCE 06/17/18 15:30 06/17/18 15:34 DC Orphenadrine Citrate (Norflex) 60 mg 1X ONCE 06/17/18 15:30 06/17/18 15:31 DC Allergies Allergies Allergies Coded Allergies Type Severity Reaction Last Updated Verified NSAIDS (Non-Steroidal Anti-Inflamma Allergy Intermediate 08/20/16 Yes Sulfa (Sulfonamide Antibiotics) Allergy Intermediate 08/20/16 Yes cephalexin Allergy Intermediate 08/20/16 Yes nitrofurantoin Allergy Intermediate 01/22/17 Yes prednisone Allergy Intermediate 08/20/16 Yes sulfamethoxazole Allergy Intermediate 08/20/16 Yes trimethoprim Allergy Intermediate 08/20/16 Yes Physical Exam Physical Exam Constitutional: Well developed, well nourished, no acute distress, non-toxic appearance. [] HENT: Normocephalic, atraumatic, bilateral external ears normal, oropharynx moist, no oral exudates, nose normal. [] Eyes: PERRLA, EOMI, conjunctiva normal, no discharge. [] Neck: Normal range of motion, no tenderness, supple, no stridor. [] Cardiovascular:Heart rate regular rhythm, no murmur [] Lungs & Thorax: Bilateral breath sounds clear to auscultation [] Abdomen: Bowel sounds normal, soft, no tenderness, no masses, no pulsatile masses. [] Skin: Warm, dry, no erythema, no rash. [] Back: No tenderness, no CVA tenderness. [] Extremities: No tenderness, no cyanosis, no clubbing, ROM intact, no edema. [] Neurologic: Alert and oriented X 3, normal motor function, normal sensory function, no focal deficits noted. [] Psychologic: Affect normal, judgement normal, mood normal. [] Current Patient Data Vital Signs Vital Signs Date Time Temp Pulse Resp B/P (MAP) Pulse Ox O2 Delivery O2 Flow Rate FiO2 06/17/18 12:35 97.6 109 20 148/93 (111) 98 Room Air 97.6 EKG EKG [] Radiology/Procedures Radiology/Procedures [] Course & Med Decision Making Course & Med Decision Making Pertinent Labs and Imaging studies reviewed. (See chart for details) [] Dragon Disclaimer Dragon Disclaimer This electronic medical record was generated, in whole or in part, using a voice recognition dictation system. Departure Departure Impression: Primary Impression: Right leg pain Additional Impressions: Morbid obesity Drug-seeking behavior Tobacco abuse Tobacco abuse counseling Disposition: HOME, SELF-CARE (at 1541) Condition: STABLE Referrals: UNKNOWN PCP NAME (PCP) Patient Instructions: Muscle Strain, Smoking Cessation, Tips For Success Additional Instructions: Apply ice on affected area Follow-up with your primary care physician in 3-5 days Return to ER if not getting better Scripts Hydrocodone/Apap 5-325 (NORCO 5-325 TABLET) 1 Each Tablet 1 TAB PO PRN Q6HRS PRN for PAIN, #10 TAB 0 Refills Prov: FAWAD STERN MD 06/17/18 Cyclobenzaprine Hcl (CYCLOBENZAPRINE HCL) 10 Mg Tablet 1 TAB PO TID for muscle pain, #20 TAB Prov: FAWAD STERN MD 06/17/18 Problem Qualifiers FAWAD STERN MD Jun 17, 2018 15:44
[2018-06-17] MEDS ORDERED: KETOROLAC 30 MG/ML VIAL. IM ONE (15:45)
== END 2018-06-17 15:46 | disposition home or self-care (01) ==
LOC: ER 11:57
DX: M79.604 Pain in right leg (principal); M25.561 Pain in right knee; Z76.5 Malingerer [conscious simulation]; Z71.6 Tobacco abuse counseling; E66.01 Morbid (severe) obesity due to excess calories; Z68.43 Body mass index [BMI] 50.0-59.9, adult; F41.9 Anxiety disorder, unspecified; F31.9 Bipolar disorder, unspecified; I11.0 Hypertensive heart disease with heart failure; I50.9 Heart failure, unspecified; F17.200 Nicotine dependence, unspecified, uncomplicated; Z98.890 Other specified postprocedural states; Z88.2 Allergy status to sulfonamides; Z88.1 Allergy status to other antibiotic agents; Z88.8 Allergy status to other drugs, medicaments and biological substances
CPT/HCPCS: 73562; 93971; 96372; 99284; J1885

== ENCOUNTER 2019-01-16 13:16 | Emergency (ER) | payer MEDICAID ==
[~2019-01-16] VITALS: Ht 165.1 cm; Wt 188.7 kg
[~2019-01-16 13:16] MED LIST changes: +ALBU2.5V8 INH; +HYDR-3164 PO; -HYDR-971 PO; -PROAIR HFA8.5 GM INH
[2019-01-16 14:00] VITALS: BP 152/82
[2019-01-16 15:04] LABS: BILIRUBIN,URINE NEGATIVE (NEG); CLARITY,URINE CLEAR; COLOR,URINE YELLOW; NITRITE,URINE NEGATIVE (NEG); PH,URINE 5.5; PROTEIN,URINE NEGATIVE (NEG-TRACE); UROBILINOGEN,URINE 0.2 mg/dL (0.2 mg/dL)
--- NOTE | 2019-01-16 15:08 | PHYS DOC ---
Past Medical History Past Medical History: Anxiety, Arthritis, Bipolar, CHF, Depression, Hypertension, Liver Disease, Schizophrenia, UTI, Other Additional Past Medical Histor: preeclampsia; 11miscarriages;septal defect in uterus,FATTY LIVER DS,OBESITY Past Surgical History: , Other Additional Past Surgical Histo: cervical CONIZATION, D&C 03/08/18 Smoking: Cigarettes, Less than 1pk/day Alcohol Use: None Drug Use: None Adult General Chief Complaint Chief Complaint: ABDOMINAL PAIN IN HPI HPI Patient is a 33 year old female who presents with abdominal cramping has been ongoing for 1 week. The patient states her LMP was Sep.13. The patient has had 2 positive home test. Has not been seen by OB. The patient states that she had vaginal spotting a couple days ago. [id number]. Rates her pain as 7/10 and sharp. Review of Systems Review of Systems Constitutional: Denies fever or chills [] Eyes: Denies change in visual acuity, redness, or eye pain [] HENT: Denies nasal congestion or sore throat [] Respiratory: Denies cough or shortness of breath [] Cardiovascular: No additional information not addressed in HPI [] GI: Reports abdominal pain, Denies nausea, vomiting, bloody stools or diarrhea [] : Denies dysuria or hematuria [] Musculoskeletal: Denies back pain or joint pain [] Integument: Denies rash or skin lesions [] Neurologic: Denies headache, focal weakness or sensory changes [] Endocrine: Denies polyuria or polydipsia [] Complete systems were reviewed and found to be within normal limits, except as documented in this note. Current Medications Current Medications Current Medications Medications (Trade) Dose Ordered Sig/Kathy Start Time Stop Time Status Last Admin Dose Admin Morphine Sulfate (Morphine Sulfate) 2 mg 1X ONCE 01/16/19 16:30 01/16/19 16:31 DC Allergies Allergies Allergies Coded Allergies Type Severity Reaction Last Updated Verified NSAIDS (Non-Steroidal Anti-Inflamma Allergy Intermediate 08/20/16 Yes Sulfa (Sulfonamide Antibiotics) Allergy Intermediate 08/20/16 Yes cephalexin Allergy Intermediate 08/20/16 Yes nitrofurantoin Allergy Intermediate 01/22/17 Yes prednisone Allergy Intermediate 08/20/16 Yes sulfamethoxazole Allergy Intermediate 08/20/16 Yes trimethoprim Allergy Intermediate 08/20/16 Yes Physical Exam Physical Exam Constitutional: Well developed, well nourished, no acute distress, non-toxic appearance. [] HENT: Normocephalic, atraumatic, bilateral external ears normal, oropharynx moist, no oral exudates, nose normal. [] Eyes: PERRLA, EOMI, conjunctiva normal, no discharge. [] Neck: Normal range of motion, no tenderness, supple, no stridor. [] Cardiovascular:Heart rate regular rhythm, no murmur [] Lungs & Thorax: Bilateral breath sounds clear to auscultation [] Abdomen: Bowel sounds normal, soft, diffuse tenderness, no masses, no pulsatile masses. [] Skin: Warm, dry, no erythema, no rash. [] Back: No tenderness, no CVA tenderness. [] Extremities: No tenderness, no cyanosis, no clubbing, ROM intact, no edema. [] Neurologic: Alert and oriented X 3, normal motor function, normal sensory function, no focal deficits noted. [] Psychologic: Affect normal, judgement normal, mood normal. [] Current Patient Data Vital Signs Vital Signs Date Time Temp Pulse Resp B/P (MAP) Pulse Ox O2 Delivery O2 Flow Rate FiO2 01/16/19 14:00 98.6 106 20 152/82 (105) 96 Room Air 98.6 Lab Values Laboratory Tests Test 01/16/19 14:05 01/16/19 14:10 01/16/19 15:30 Urine Collection Type Unknown Urine Color Yellow Urine Clarity Clear Urine pH 5.5 Urine Specific [place] 1.020 Urine Protein Negative mg/dL (NEG-TRACE) Urine Glucose (UA) Negative mg/dL (NEG) Urine Ketones (Stick) Negative mg/dL (NEG) Urine Blood Negative (NEG) Urine Nitrite Negative (NEG) Urine Bilirubin Negative (NEG) Urine Urobilinogen Dipstick 0.2 mg/dL (0.2 mg/dL) Urine Leukocyte Esterase Trace (NEG) Urine RBC 0 /HPF (0-2) Urine WBC Occ /HPF (0-4) Urine Squamous Epithelial Cells Many /LPF Urine Bacteria Many /HPF (0-FEW) Urine Mucus Marked /LPF POC Urine HCG, Qualitative Hcg negative (Negative) White Blood Count 12.2 x10^3/uL (4.0-11.0) H Red Blood Count 4.81 x10^6/uL (3.50-5.40) Hemoglobin 15.0 g/dL (12.0-15.5) Hematocrit 44.5 % (36.0-47.0) Mean Corpuscular Volume 93 fL (79-100) Mean Corpuscular Hemoglobin 31 pg (25-35) Mean Corpuscular Hemoglobin Concent 34 g/dL (31-37) Red Cell Distribution Width 13.9 % (11.5-14.5) Platelet Count 206 x10^3/uL (140-400) Neutrophils (%) (Auto) 60 % (31-73) Lymphocytes (%) (Auto) 31 % (24-48) Monocytes (%) (Auto) 7 % (0-9) Eosinophils (%) (Auto) 1 % (0-3) Basophils (%) (Auto) 1 % (0-3) Neutrophils # (Auto) 7.3 x10^3uL (1.8-7.7) Lymphocytes # (Auto) 3.8 x10^3/uL (1.0-4.8) Monocytes # (Auto) 0.8 x10^3/uL (0.0-1.1) Eosinophils # (Auto) 0.1 x10^3/uL (0.0-0.7) Basophils # (Auto) 0.1 x10^3/uL (0.0-0.2) Maternal Serum HCG Beta Subunit < 1 mIU/mL (0-5) Sodium Level 142 mmol/L (136-145) Potassium Level 3.7 mmol/L (3.5-5.1) Chloride Level 103 mmol/L (98-107) Carbon Dioxide Level 28 mmol/L (21-32) Anion Gap 11 (6-14) Blood Urea Nitrogen 10 mg/dL (7-20) Creatinine 0.7 mg/dL (0.6-1.0) Estimated GFR (Cockcroft-Gault) 97.6 BUN/Creatinine Ratio 14 (6-20) Glucose Level 85 mg/dL (70-99) Calcium Level 8.9 mg/dL (8.5-10.1) Total Bilirubin 0.8 mg/dL (0.2-1.0) Aspartate Amino Transferase (AST) 23 U/L (15-37) Alanine Aminotransferase (ALT) 36 U/L (14-59) Alkaline Phosphatase 118 U/L (46-116) H Total Protein 7.1 g/dL (6.4-8.2) Albumin 3.3 g/dL (3.4-5.0) L Albumin/Globulin Ratio 0.9 (1.0-1.7) L Laboratory Tests 01/16/19 15:30 Laboratory Tests 01/16/19 15:30 Microbiology 01/16/19 Wet Prep - Final, Complete EKG EKG [] Radiology/Procedures Radiology/Procedures Pelvic Exam: External exam is normal and without rash, OS is closed, white discharge, uterus NTTP, No adnexal masses or tenderness noted[] Course & Med Decision Making Course & Med Decision Making Pertinent Labs and Imaging studies reviewed. (See chart for details) Will get labs, urine, OB ultrasound, HCG QUANT. Patient initially refused labs. Went to talk to patient and she agreed to have labs taken. Labs show that patient is not as she had stated. Patient requests STD testing. Ordered STD tests and performed pelvic exam. Also ordered CT scan. Patient declines treatment for STD deciding to wait until results to go to her doctor as she does not want to wait for treatment in ER. Offered treatment in e ER and did not want to wait. Patient was upset as she did not seem to understand why we had waited until this point in her workup. It was attempted to be explained that there are many medications and tests we cannot due if she is which she told us at the beginning and thus we could not order until we discovered that she is not . Declines CT scan due to the time. Patient decided to leave AMA. Patient advised of the risks of leaving against medical advice. Patient verbalized that she wants to leave. Dragon Disclaimer Dragon Disclaimer This electronic medical record was generated, in whole or in part, using a voice recognition dictation system. Departure Departure Impression: Primary Impression: Left against medical advice Disposition: 07 AGAINST MEDICAL ADVICE Referrals: UNKNOWN PCP NAME (PCP) RUSSELL LIZARRAGA APRN Jan 16, 2019 15:08
[2019-01-16 15:28] LABS: BACTERIA,URINE MANY /HPF (0-FEW); RBC,URINE 0 /HPF (0-2); SQUAMOUS EPITHELIAL CELL,UR MANY /LPF; WBC,URINE OCC /HPF (0-4)
[2019-01-16 15:41] LABS: BASO # 0.1 x10^3/uL (0.0-0.2); BASO % 1 % (0-3); EOS # 0.1 x10^3/uL (0.0-0.7); EOS % 1 % (0-3); HEMATOCRIT 44.5 % (36.0-47.0); LYMPH # 3.8 x10^3/uL (1.0-4.8); LYMPH % 31 % (24-48); MEAN CORPUSCULAR HEMOGLOBIN 31 pg (25-35); MEAN CORPUSCULAR HGB CONC 34 g/dL (31-37); MEAN CORPUSCULAR VOLUME 93 fL (79-100); MONO # 0.8 x10^3/uL (0.0-1.1); MONO % 7 % (0-9); NEUT # 7.3 x10^3uL (1.8-7.7); NEUT % 60 % (31-73); PLATELET COUNT 206 x10^3/uL (140-400); RED BLOOD COUNT 4.81 x10^6/uL (3.50-5.40); RED CELL DISTRIBUTION WIDTH 13.9 % (11.5-14.5); WHITE BLOOD COUNT 12.2 x10^3/uL (4.0-11.0)
[2019-01-16 15:59] LABS: CALCIUM 8.9 mg/dL (8.5-10.1); CREATININE 0.7 mg/dL (0.6-1.0); GFR 97.6; POTASSIUM 3.7 mmol/L (3.5-5.1)
[2019-01-16 16:06] LABS: ALBUMIN 3.3 g/dL (3.4-5.0); ALBUMIN/GLOBULIN RATIO 0.9 (1.0-1.7); TOTAL BILIRUBIN 0.8 mg/dL (0.2-1.0); TOTAL PROTEIN 7.1 g/dL (6.4-8.2)
[2019-01-16] MEDS ORDERED: MORPHINE SULFATE 2 MG/ML VIAL. IV ONE (16:30)
[2019-01-17 15:17] LABS: GC PROBE Negative (Negative)
== END 2019-01-16 17:13 | disposition left against medical advice (07) ==
LOC: ER 13:16
DX: O26.852 Spotting complicating pregnancy, second trimester (principal); R10.84 Generalized abdominal pain; I11.9 Hypertensive heart disease without heart failure; O99.342 Other mental disorders complicating pregnancy, second trimester; F20.9 Schizophrenia, unspecified; F31.9 Bipolar disorder, unspecified; O99.332 Smoking (tobacco) complicating pregnancy, second trimester; F17.210 Nicotine dependence, cigarettes, uncomplicated; O99.212 Obesity complicating pregnancy, second trimester; Z87.440 Personal history of urinary (tract) infections; Z88.2 Allergy status to sulfonamides; Z88.1 Allergy status to other antibiotic agents; Z88.6 Allergy status to analgesic agent; Z88.8 Allergy status to other drugs, medicaments and biological substances; Z3A.00 Weeks of gestation of pregnancy not specified
CPT/HCPCS: 36415; 80053; 81001; 81025; 84702; 85025; 87086; 87491; 87591; 99284; Q0111